=== PATIENT | female | born 1960 | race Caucasian/White ===

== ENCOUNTER 2018-12-08 08:17 | Emergency (ER) | payer SELFPAY ==
[2018-12-08 09:10] LABS: #Eosinphils 0.2 thou/uL (0.0-0.7); #Lymphocytes 2.5 thou/uL (1.20-3.40); #Monocytes 0.6 thou/uL (0.11-0.59); #Neutrophils 3.8 thou/uL (1.40-6.50); %Basophils 0.5 % (0.0-1.0); %Eosinophils 3.4 % (0.0-10.0); %Lymphocytes 34.4 % (21.0-51.0); %Monocytes 8.3 % (0.0-10.0); %Neutrophils 53.4 % (42.0-75.0); Hemoglobin 12.2 g/dL (12.0-16.0); Mean Corpuscular HGB CONC 33.5 g/dL (32.0-36.0); Mean Corpuscular Hemoglobin 28.9 pg (27.0-31.0); Mean Corpuscular Volume 86.2 fL (78.0-98.0); Mean Platelet Volume 8.1 fL (7.4-10.4); Platelet Count 273 thou/uL (130-400); RBC Distribution Width 13.8 % (11.5-14.5); Red Blood Cell (RBC) Count 4.21 mill/uL (4.20-5.40); White Blood Cell (WBC) Count 7.2 thou/uL (4.8-10.8)
[2018-12-08 09:56] LABS: ALT (SGPT) 15 U/L (8-55); AST (SGOT) 16 U/L (5-34); Alkaline Phosphatase 132 U/L (40-150); Anion Gap 17 mmol/L (10-20); BUN (Urea Nitrogen) 11 mg/dL (9.8-20.1); Bilirubin, Total 0.2 mg/dL (0.2-1.2); Calc. Creatinine Clearance 0 mL/min (70-130); Calcium 9.2 mg/dL (7.8-10.44); Carbon Dioxide 21 mmol/L (22-29); Chloride 107 mmol/L (98-107); Estimated GFR-MDRD 75; Globulin 2.4 g/dL (2.4-3.5); Glucose 99 mg/dL (70-105); Lipase 9 U/L (8-78); Protein, Total 6.4 g/dL (6.0-8.3); Sodium 141 mmol/L (136-145)
[2018-12-08] MEDS ORDERED: Ondansetron PF 4 MG/2 ML Vial ONE (10:06)
[2018-12-08 10:49] LABS: Bilirubin Negative (Negative); Blood, Urine Negative (Negative); Clarity Clear (Clear); Glucose, Urine (Dipstick) Normal (Negative); Leukocyte Negative Leu/uL (Negative); Nitrite Negative (Negative); Protein, Urine (Dipstick) Negative (Neg-Trace); Urobilinogen Normal mg/dL (Less than 2)
[2018-12-08] MEDS ORDERED: ISOVUE-370 76%-LOCM 1 ML ONE (11:10)
[2018-12-08] MEDS ORDERED: Iopamidol 370 76% 50 ML VIAL FS ONE (11:10)
--- NOTE | 2018-12-08 12:14 | CT ---
CT ABDOMEN AND PELVIS WITH IV CONTRAST: Oral contrast also administered. Multiplanar reconstruction. INDICATION: Abdominal pain. History of gastric bypass surgery. COMPARISON: No comparison. FINDINGS: The lung bases are clear. Liver, spleen, and pancreas are unremarkable. There is a small sliding diaphragmatic hernia. Change s of gastric bypass noted with a gastrojejunostomy. The visualized stomach and duodenum are unremark able. Jejunal loops show mild dilatation proximally. The more distal jejunal loops are normal caliber. Il eal loops unremarkable. Stool throughout the colon. Aorta normal caliber. No adenopathy, mass, or free fluid. Adrenal glands and kidneys unremarkable. Urinary bladder unremarkable. IMPRESSION: Postoperative changes and gastric bypass with a gastrojejunostomy. Nonspecific distention of proxima l jejunal loops. The mid and distal small bowel loops are unremarkable. No evidence of acute proces s. POS: OFF
== END 2018-12-08 12:15 | disposition home or self-care (01) ==
LOC: ERS 08:17
DX: R10.9 Unspecified abdominal pain (principal); I10 Essential (primary) hypertension; F41.9 Anxiety disorder, unspecified; Z79.899 Other long term (current) drug therapy
CPT/HCPCS: 36415; 74177; 80053; 81003; 83690; 85025; 96374; J2405; Q9966; Q9967

== ENCOUNTER 2019-11-01 10:28 | Emergency (ER) | payer MEDICARE, SELFPAY ==
--- NOTE | 2019-11-01 11:42 | CT ---
EXAM: CT pelvis without contrast HISTORY: Right hip pain after falling out of bed 2 days ago COMPARISON: None TECHNIQUE: Multiple contiguous axial images were obtained and a CT of the pelvis without contrast. Sa gittal and coronal reformats were performed. FINDINGS: No pelvic fractures are seen. No fracture of either proximal femur is seen. No significant degenerative changes are seen. There is a nonspecific sclerotic lesion in the right iliac bone. The visualized intrapelvic structures are unremarkable. The soft tissues surrounding the pelvis are u nremarkable. IMPRESSION: No evidence of hip or pelvic fracture.
== END 2019-11-01 11:55 | disposition home or self-care (01) ==
LOC: ERS 10:28
DX: S70.01XA Contusion of right hip, initial encounter (principal); I10 Essential (primary) hypertension; F41.9 Anxiety disorder, unspecified; F03.90 Unspecified dementia, unspecified severity, without behavioral disturbance, psychotic disturbance, mood disturbance, and anxiety; Z79.899 Other long term (current) drug therapy; W06.XXXA Fall from bed, initial encounter
CPT/HCPCS: 72192

== ENCOUNTER 2019-12-05 09:53 | Inpatient (IN) | payer MEDICARE, OTHER ==
--- NOTE | 2019-12-05 10:13 | CT ---
CT BRAIN WITHOUT CONTRAST: HISTORY: Level 2 stroke. Left-sided facial droop and right-sided weakness FINDINGS: No evidence of acute infarct, hemorrhage, midline shift or abnormal extra-axial fluid collections is seen. The ventricular size is appropriate and the basilar cisterns are patent. The bony calvarium is intact. The visualized paranasal sinuses and mastoid air cells are well aerated. IMPRESSION: No CT evidence of acute intracranial process. Discussed over the telephone with ER physician Dr. Lam Motta at 10:10 AM
[2019-12-05 10:14] LABS: #Basophils 0.1 thou/uL (0.0-0.2); #Eosinphils 0.2 thou/uL (0.0-0.7); #Monocytes 0.5 thou/uL (0.11-0.59); #Neutrophils 5.6 thou/uL (1.40-6.50); %Basophils 1.2 % (0.0-1.0); %Lymphocytes 32.2 % (21.0-51.0); %Monocytes 5.6 % (0.0-10.0); %Neutrophils 59.1 % (42.0-75.0); Hemoglobin 13.7 g/dL (12.0-16.0); Mean Corpuscular HGB CONC 32.7 g/dL (32.0-36.0); Mean Corpuscular Hemoglobin 29.1 pg (27.0-31.0); Mean Corpuscular Volume 89.2 fL (78.0-98.0); Mean Platelet Volume 8.4 fL (7.4-10.4); Platelet Count 381 thou/uL (130-400); RBC Distribution Width 14.9 % (11.5-14.5); Red Blood Cell (RBC) Count 4.71 mill/uL (4.20-5.40); White Blood Cell (WBC) Count 9.4 thou/uL (4.8-10.8)
[2019-12-05 10:18] LABS: INR-International Normal Ratio 0.9; PTT 32.6 sec (22.9-36.1); Prothrombin Time 12.3 sec (12.0-14.7)
[2019-12-05 10:31] LABS: ALT (SGPT) 12 U/L (8-55); AST (SGOT) 13 U/L (5-34); Albumin 4.4 g/dL (3.5-5.0); Alkaline Phosphatase 149 U/L (40-110); Anion Gap 16 mmol/L (10-20); BUN (Urea Nitrogen) 16 mg/dL (9.8-20.1); Bilirubin, Total 0.2 mg/dL (0.2-1.2); CK (CPK) 41 U/L (29-168); Calc. Creatinine Clearance 0 mL/min (70-130); Calcium 9.4 mg/dL (7.8-10.44); Carbon Dioxide 22 mmol/L (22-29); Chloride 103 mmol/L (98-107); Estimated GFR-MDRD 74; Globulin 2.8 g/dL (2.4-3.5); Glucose 197 mg/dL (70-105); Protein, Total 7.2 g/dL (6.0-8.3); Sodium 137 mmol/L (136-145)
[2019-12-05] MEDS ORDERED: Aspirin Chewable 81 MG TAB ONE (10:40)
[2019-12-05] MEDS ORDERED: Ondansetron ODT 4 MG TAB SL PRN (11:00)
[2019-12-05] MEDS ORDERED: Ondansetron PF 4 MG/2 ML Vial IVP PRN ×2 (11:00→13:46)
[2019-12-05] MEDS ORDERED: Acetaminophen 325 MG TAB PO PRN ×2 (11:00→13:46)
--- NOTE | 2019-12-05 13:16 | PDOC.FPRHP ---
- History of Present Illness Chief Complaint: right sided numbness History of Present Illness: Patient is a pleasant 59 year old female with PMH of early onset Alzheimer's dementia, T2DM, HTN, a right hip fracture presenting to the ED at [facility] complaining of right sided numbness. Patient states that yesterday afternoon around 4pm, she was watching TV when she experienced an "excruciating headache. " This has never happened before. Headache was located on the right pentecostalism area. Pain was described as "sharp and dull," rated as a 10/10 at its greatest with occasional radiation to the right occipital area. Patient states that she attempted to treat the headache with extra strength Tylenol which did not alleviate the pain. Patient also noticed that the right side of her face was "drooping" at the onset of the headache. She noticed that she was not able to drink out of a straw due to this drooping. Nothing made these symptoms better or worse. Patient attempted to sleep but was unable to get rest due to the unrelenting headache. Upon waking this morning, she noticed that her right upper and lower extremities were numb. Her headache was still present. Patient' s mother brought her to the hospital. Patient also admits to history of migraine and multiple concussions. Patient also states that she fell on her right hip 1-2 months ago. Hip was not operated on. Patient admits to nausea and numbness in her right upper and lower extremities but denies any fever, chills, dizziness, chest pain, shortness of breath, vomiting, abdominal pain, diarrhea, constipation, dysuria. ED Course: 81 mg aspirin; CT head - Allergies/Adverse Reactions Allergies Allergy/AdvReac Type Severity Reaction Status Date / Time No Known Allergies Allergy Unverified 12/05/19 14:09 - Home Medications Medication Instructions Recorded Confirmed Type Acetaminophen [Tylenol Extra 1,000 mg PO Q4HR PRN 12/05/19 12/05/19 History Strength] Aripiprazole [Abilify] 10 mg PO DAILY 12/05/19 12/05/19 History Cyclobenzaprine [Flexeril] 10 mg PO TID PRN 12/05/19 12/05/19 History Doxepin HCl 25 mg PO DAILY 12/05/19 12/05/19 History Ibuprofen [Motrin] 800 mg PO TID PRN 12/05/19 12/05/19 History Omeprazole 20 mg BID 12/05/19 12/05/19 History Sertraline HCl [Zoloft] 150 mg PO DAILY 12/05/19 12/05/19 History Topiramate 25 mg BID 12/05/19 12/05/19 History clonazePAM [Klonopin] 1 mg PO TID 12/05/19 12/05/19 History lamoTRIgine [LaMICtal XR] 50 mg PO DAILY 12/05/19 12/05/19 History metFORMIN [Glucophage] 500 mg PO BID-WM 12/05/19 12/05/19 History - History PMHx: hypertension, DMII, Depression, Early onset alzheimers PSHx: exploratory laparotomy in May 2019 in [place], hysterectomy, cholecystectomy, tummy tuck, breast lift, appendectomy FHx: sister - multiple TIAs; father - [place]; maternal grandfather - TIAs and stroke Social: denies any EtOH, tobacco, illicit drug use or recent travel; currently on disability due to early onset Alzheimer's dementia - Review of Systems General: denies: fever/chills Eyes: denies: eye pain, vision changes ENT: denies: nasal congestion Respiratory: denies: cough, congestion, shortness of breath Cardiovascular: reports: edema. denies: chest pain Gastrointestinal: reports: nausea. denies: vomiting, diarrhea, constipation Genitourinary: denies: dysuria, polyuria Skin: denies: rashes, lesions Musculoskeletal: reports: swelling Neurological: reports: numbness (right sideded), weakness (right sided) Psychological: reports: anxiety, depression - Vital signs BP: 119/78 HR: 66 RR: 16 Tmax: 98.0 Pox: 96% on RA Wt: 106 kg - Physical Exam Constitutional: NAD, awake, alert and oriented HEENT: normocephalic and atraumatic, PERRLA, EOMI, conjunctiva clear, no scleral icterus, grossly normal vision, grossly normal hearing, normal nasal mucosa, oropharynx clear Neck: supple, FROM Chest: no-tender to palpation Heart: RRR, normal S1/S2, pulses present, no edema Lungs: CTAB, no respiratory distress, good air movement, no rales/rhonchi, no wheezing Abdomen: bowel sounds present, no masses/distention Musculoskeletal: normal structure -Musculoskeletal: ROM decreased in right lower extremity -Neurological: decreased hearing on right ear; decreased sensation in all areas of CN V on the right side; decreased sensation in all dermatomes in upper and lower right extremities; strength testing 4/5 on the right upper and lower extremities but 5 /5 on left upper low extremities; positive pronator drift; right sided facial droop Skin: no rash/lesions, no jaundice Heme/Lymphatic: no unusual bruising or bleeding, no purpura, no petechia Psychiatric: normal mood and affect, good judgment and insight, intact recent and remote memory FMR H&P: Results - Labs Result Diagrams: 12/05/19 09:59 12/05/19 09:59 Lab results: WBC 9.4 thou/uL (4.8-10.8) 12/05/19 09:59 Hgb 13.7 g/dL (12.0-16.0) 12/05/19 09:59 Hct 42.0 % (36.0-47.0) 12/05/19 09:59 MCV 89.2 fL (78.0-98.0) 12/05/19 09:59 Plt Count 381 thou/uL (130-400) 12/05/19 09:59 Neutrophils % 59.1 % (42.0-75.0) 12/05/19 09:59 Sodium 137 mmol/L (136-145) 12/05/19 09:59 Potassium 4.0 mmol/L (3.5-5.1) 12/05/19 09:59 Chloride 103 mmol/L (98-107) 12/05/19 09:59 Carbon Dioxide 22 mmol/L (22-29) 12/05/19 09:59 BUN 16 mg/dL (9.8-20.1) 12/05/19 09:59 Creatinine 0.80 mg/dL (0.6-1.1) 12/05/19 09:59 Glucose 197 mg/dL (70-105) H 12/05/19 09:59 Calcium 9.4 mg/dL (7.8-10.44) 12/05/19 09:59 Total Bilirubin 0.2 mg/dL (0.2-1.2) 12/05/19 09:59 AST 13 U/L (5-34) 12/05/19 09:59 ALT 12 U/L (8-55) 12/05/19 09:59 Alkaline Phosphatase 149 U/L (40-110) H 12/05/19 09:59 Creatine Kinase 41 U/L (29-168) 12/05/19 09:59 Serum Total Protein 7.2 g/dL (6.0-8.3) 12/05/19 09:59 Albumin 4.4 g/dL (3.5-5.0) 12/05/19 09:59 - EKG Interpretation EKG: NSR 95 bmp - Radiology Interpretation CT scan - head Status: image reviewed by me, report reviewed by me Additional comment: No acute intracranial process FMR H&P: A/P - Plan Right sided hemiparesis like 2/2 to ischemic stroke vs. migraine - NIH 6, s/p ASA 324 mg - symptoms began at 1600 yesterday, outside of the window for TPA - CT showed no intracranial process, CTA neck negative - MRI ordered - TSH, mag, phos, and lipid panel ordered - cleared by E[employer] MOLD [employer]ORATORY TECHNICIAN - pt has history of migraines on multiple migraine medications (starting home topamax) - s/p tylenol and toradol for pain DMII - start home metformin Depression/Anxiety - will start home clonazepam, doxepin, aripiprazole, lamotragine Early Onset Alzheimers - will monitor, does not appear that she is on any home medication Peptic Ulcer Disease - will start home omeprazole PCP: Dr. Carney Diet: CC IVF: SL CODE: Full Dispo: discharge pending further medical workup. Will admit to stroke unit. Length of stay >48 hrs FMR H&P: Upper Level - Pertinent history I, Linda Beckham MD PGY3, have evaluated this patient and agree with findings/plan as outlined by data analysis intern resident. Pertinent changes/additions are listed here. 59 yo F with hx of early onset Alzheimers dementa, DM2 on metformin, hx of migraines, significant psych history, and hx of gastric bypass presents for acute onset of right facial paralysis and weakness of RUE and RLE associated with headache. Patient reports she noticed she was having difficulty drinking through a straw and swallowing. She reports associated ipsilateral numbness right face, RUE and RLE. She reports associated right temporal headache that is throbbing, radiating to the back of the head. Denies associated vision changes, light or sound sensitivity. Reports decreased hearing R ear. On exam, NIHSS of 6 with Rt facial paralysis including forehead, decreased hearing right ear, numbness Rt face, RUE and RLE, and strength 4/5 in RUE and RLE. In ED, CT head and CTA head/neck were negative. Vitals signs were stable. CBC/ CMP were unremarkable except for mildly elevated alk phos. TSH, mag and phos unremarkable. CVA vs Complex Migraine vs [place] Palsy -NIH 6, s/p ASA 324 mg -CT head and CTA head/neck neg -MRI pending -FLP pending, continue home statin -continue home ASA 81 mg qd -Speech eval completed, start HH and CC diet -Toradol and tylenol for headache, resume home medications for migraine Agree with data analysis intern note for management of other chronic problems. - Plan Date/Time: 12/05/19 1303 Addendum - Attending - Attending Attestation Date/Time: 12/05/19 1701 I personally evaluated the patient and discussed the management with the team. I agree with the History, Examination, Assessment and Plan documented above with any addition or exceptions noted below. Patient with headache starting after the symptom onset yesterday. She denies a history of recent headache but seems to have a home med list c/w a h/o headaches. Will go ahead and talk with neuro concerning SAH or any additional workup.
[2019-12-05] MEDS ORDERED: Ondansetron ODT 4 MG TAB PO PRN (13:46)
[2019-12-05 14:02] VITALS: BMI 36.5
[2019-12-05] MEDS ORDERED: Acetaminophen 500 MG TAB PO SCH (14:15)
[2019-12-05] MEDS ORDERED: Ketorolac Tromethamine 30 MG/ML VIAL IVP SCH (14:15)
[2019-12-05] MEDS ORDERED: Iopamidol 370 76% 100 ML VIAL ONE (14:30)
[2019-12-05] MEDS ORDERED: Aspirin 81 mg Enteric Coated Tablet PO SCH (14:45)
[2019-12-05] MEDS ORDERED: Lorazepam 0.5 MG TAB PO SCH ×2 (14:45)
[2019-12-05 15:10] LABS: Hemoglobin A1c 5.7 % (4.0-6.0)
[2019-12-05 15:13] LABS: Magnesium 1.9 mg/dL (1.6-2.6); Phosphorus 3.8 mg/dL (2.3-4.7)
[2019-12-05] MEDS ORDERED: Dextrose 5% in Water 1,000 ML IV PRN (15:45)
[2019-12-05] MEDS ORDERED: Dextrose 50% Abboject 50 ML SYRINGE SLOW IVP PRN (15:45)
[2019-12-05] MEDS: metFORMIN 500 MG TAB PO SCH (16:51)
[2019-12-05] MEDS ORDERED: Artificial Tear Sol 15 ML BOT EA EYE PRN (20:44)
[2019-12-05] MEDS ORDERED: Polyvinyl Alcohol 1.4%/Povidone 0.6% Opth Drops EA EYE SCH (20:45)
[2019-12-05] MEDS ORDERED: clonazePAM 1 MG TAB PO SCH (21:00)
[2019-12-05] MEDS: Topiramate 25 MG TAB PO SCH (21:11)
[2019-12-05] MEDS: Ibuprofen 800 MG TAB PO PRN (21:11)
[2019-12-05] MEDS: clonazePAM 1 MG TAB PO SCH (21:11)
[2019-12-06 05:32] LABS: #Basophils 0.1 thou/uL (0.0-0.2); #Eosinphils 0.3 thou/uL (0.0-0.7); #Monocytes 0.6 thou/uL (0.11-0.59); #Neutrophils 3.4 thou/uL (1.40-6.50); %Basophils 0.8 % (0.0-1.0); %Eosinophils 3.9 % (0.0-10.0); %Lymphocytes 41.4 % (21.0-51.0); %Monocytes 8.2 % (0.0-10.0); %Neutrophils 45.7 % (42.0-75.0); Hemoglobin 12.8 g/dL (12.0-16.0); Mean Corpuscular HGB CONC 31.6 g/dL (32.0-36.0); Mean Corpuscular Hemoglobin 28.3 pg (27.0-31.0); Mean Corpuscular Volume 89.4 fL (78.0-98.0); Mean Platelet Volume 8.3 fL (7.4-10.4); Platelet Count 352 thou/uL (130-400); RBC Distribution Width 15.1 % (11.5-14.5); Red Blood Cell (RBC) Count 4.54 mill/uL (4.20-5.40); White Blood Cell (WBC) Count 7.3 thou/uL (4.8-10.8)
[2019-12-06] MEDS: Ibuprofen 800 MG TAB PO PRN (05:48)
--- NOTE | 2019-12-06 06:13 | PDOC.FM ---
- Subjective Subjective: Reports continuous headache with no relief from ibuprofen or tylenol. Reports improvement in sensation and strength. Says that although she still cannot close her right eye completely, she feels that it has improved. Pt is also asking if she will be able to go home today after her MRI. - Objective MAR Reviewed: Yes Vital Signs & Weight: Vital Signs (12 hours) Temp Pulse Pulse Pulse Resp BP BP 12/06/19 03:45 97.5 F L 82 18 12/05/19 23:58 97.6 F 86 18 12/05/19 21:10 12/05/19 20:05 98.0 F 90 18 12/05/19 18:55 95 95 106/63 124/72 BP BP BP Pulse Ox 12/06/19 03:45 110/68 97 12/05/19 23:58 97/58 L 93 L 12/05/19 21:10 96 12/05/19 20:05 128/88 96 12/05/19 18:55 Weight Weight 105.744 kg I&O: 12/04/19 12/05/19 12/06/19 06:59 06:59 06:59 Intake Total 900 Balance 900 Result Diagrams: 12/06/19 04:33 12/06/19 04:33 EKG Reviewed by me: Yes (SR 70-100s) Phys Exam - Physical Examination Constitutional: NAD HEENT: PERRLA, moist MMs Neck: supple, full ROM Respiratory: clear to auscultation bilateral Cardiovascular: RRR Musculoskeletal: no edema Improved strength throughout, improved sensation, decreased pin prick sens. Psychiatric: normal affect, A&O x 3 Skin: no rash Dx/Plan - Plan Plan: Right sided hemiparesis like 2/2 to ischemic stroke vs. migraine - NIH 6, s/p ASA 324 mg - symptoms began at 1600 yesterday, outside of the window for TPA - CT showed no intracranial process, CTA neck negative - MRI ordered yesterday, but not done - neurology consulted; appreciate recs - TSH, mag, phos within normal limits - lipid panel showed elevated triglycerides; ASCVD risk of 4.1%; due to known diabetes, will start moderate intensity statin - cleared by SUPERVISOR PROCESS TESTING - pt has history of migraines on multiple migraine medications (starting home topamax); continues to have a headache; will give reglan and benadryl - s/p tylenol and toradol for pain DMII - start home metformin Depression/Anxiety - will start home clonazepam, doxepin, aripiprazole, lamotragine Early Onset Alzheimers - will monitor, does not appear that she is on any home medication Peptic Ulcer Disease - will start home omeprazole PCP: Dr. Carney Diet: CC IVF: SL CODE: Full Dispo: consider dc home today pending MRI and neuro recs Addendum - Attending - Attending Attestation Date/Time: 12/06/19 9455 I personally evaluated the patient and discussed the management with the team. I agree with the History, Examination, Assessment and Plan documented above with any addition or exceptions noted below. Improved symptoms but still present. Headache improved. MRI normal. Plan dc with outpt f/u.
[2019-12-06 06:18] LABS: ALT (SGPT) 11 U/L (8-55); AST (SGOT) 14 U/L (5-34); Albumin 3.9 g/dL (3.5-5.0); Alkaline Phosphatase 132 U/L (40-110); Anion Gap 18 mmol/L (10-20); BUN (Urea Nitrogen) 15 mg/dL (9.8-20.1); Bilirubin, Total 0.2 mg/dL (0.2-1.2); Calc. Creatinine Clearance 138 mL/min (70-130); Calcium 8.8 mg/dL (7.8-10.44); Carbon Dioxide 20 mmol/L (22-29); Cardiac Risk 4.7 (Less than 4.5); Chloride 105 mmol/L (98-107); Cholesterol 189 mg/dl (< 200 Desired); Estimated GFR-MDRD 80; Globulin 2.5 g/dL (2.4-3.5); Glucose 102 mg/dL (70-105); HDL Cholesterol 40 mg/dL (>60 Neg Risk); LDL Cholesterol, Calculated 102 mg/dL; Potassium 4.3 mmol/L (3.5-5.1); Protein, Total 6.4 g/dL (6.0-8.3); Sodium 139 mmol/L (136-145); Triglycerides 236 mg/dL (Less than 150)
--- NOTE | 2019-12-06 07:11 | CT ---
CT HEAD WITH IV CONTRAST AND 3D POSTPROCESSING CTA HEAD WITH IV CONTRAST AND 3D POSTPROCESSING CTA NECK WITH IV CONTRAST AND 3D POSTPROCESSING: HISTORY: Level II stroke. Left-sided facial droop and right-sided weakness. FINDINGS: There is good flow in the vertebrobasilar and carotid artery systems in the neck and head. Normal ca liber is seen without evidence without high-grade stenosis, main branch occlusion, or aneurysm format ion. Discussed over the telephone with ER physician, Dr. Lam Motta, at 10:24 a.m. CODE CR POS: OFF
[2019-12-06] MEDS ORDERED: diphenhydrAMINE 25 MG CAP PO SCH (08:15)
[2019-12-06] MEDS ORDERED: Acetaminophen 500 MG TAB PO SCH (08:15)
[2019-12-06] MEDS ORDERED: Lorazepam 2 MG/ML VIAL SLOW IVP SCH (08:15)
[2019-12-06] MEDS: Topiramate 25 MG TAB PO SCH (08:37)
[2019-12-06] MEDS: clonazePAM 1 MG TAB PO SCH (08:37)
[2019-12-06] MEDS: metFORMIN 500 MG TAB PO SCH (08:38)
[2019-12-06] MEDS ORDERED: Enoxaparin Sodium 40 MG/0.4 ML SYRINGE SC SCH (09:00)
[2019-12-06] MEDS ORDERED: clonazePAM 1 MG TAB PO SCH (09:00)
[2019-12-06] MEDS ORDERED: LAMOTRIGINE 50 MG PO SCH (09:00)
[2019-12-06] MEDS ORDERED: Aripiprazole 10 MG TAB PO SCH (09:00)
[2019-12-06] MEDS ORDERED: Doxepin HCl 25 MG CAP PO SCH (09:00)
--- NOTE | 2019-12-06 09:31 | MRI ---
MRI BRAIN WITHOUT CONTRAST: HISTORY: Left-sided facial droop and right-sided weakness CORRELATION: CT scan from 12/05/2019. FINDINGS: No restricted diffusion is seen. The ventricular size is appropriate and the basilar cisterns are pat ent. No evidence of acute infarct, hemorrhage, midline shift or abnormal extra-axial fluid collections is seen. The visualized paranasal sinuses and mastoid air cells are well-aerated. IMPRESSION: No evidence of acute intracranial process.
[2019-12-06] MEDS ORDERED: Metoclopramide 10 MG/10 ML UDCUP PO SCH ×3 (09:45→11:30)
[2019-12-06 11:07] VITALS: TEMP 97.9
[2019-12-06 11:45] LABS: SARS-CoV-2 MS2 Positive; SARS-CoV-2 N Gene Negative; SARS-CoV-2 S Gene Negative; SARS-CoV-2 by NAA Not Detected (NotDetected); SARS-CoV-2 orf1ab Negative
--- NOTE | 2019-12-06 12:42 | CON ---
NEUROLOGY CONSULTATION DATE OF CONSULTATION: 12/06/2019 REASON FOR CONSULTATION: Right-sided numbness. HISTORY OF PRESENT ILLNESS: Ms. Abena English is a 59-year-old female with medical history of early-onset Alzheimer dementia, diabetes mellitus, hypertension, and recent right hip fracture, presented to the emergency room with right-sided focal paresthesias. Per patient, she was fine until 12/04/2019 around 4 p.m. when she was watching TV and experienced excruciating headache, which has never happened before in her life. The headache started in the right confucianist area and then radiated to the right occipital area. She describes the pain as sharp, dull and was 10/10. She decided to treat the pain with Extra Strength Tylenol, which did not help with the headache, and she also noticed she has right facial drooping and unable to close her right eye. She was unable to drink from a straw and noticed drooling. Per the patient, the headache continued and she felt numbness of the right upper and lower extremities. She does have history of headaches, but this headache was extremely excruciating and associated with paresthesias. The patient denies nausea, vomiting, chest pain, abdominal pain, problems with breathing, recent sick contacts, recent exposure to COVID, loss of vision or loss of consciousness associated with the episode. In the emergency room, she was given 81 mg of aspirin and head CT was done, which was negative for acute intracranial pathology. REVIEW OF SYSTEMS: All 14 systems were reviewed and were negative except the pertinent positive and negative mentioned in the HPI. PAST MEDICAL HISTORY: Hypertension, depression, early-onset Alzheimer's, diabetes mellitus type 2. PAST SURGICAL HISTORY: Exploratory laparotomy in May 2019, hysterectomy, cholecystectomy, appendectomy, breast lift, and tummy tuck. FAMILY HISTORY: Sister has multiple TIAs, mother had DC, and maternal grandfather had TIAs and stroke. SOCIAL HISTORY: The patient denies alcohol, illegal drug use, or tobacco abuse. She is currently on disability due to early-onset Alzheimer's. Allergies/Adverse Reactions Allergies Allergy/AdvReac Type Severity Reaction Status Date / Time No Known Allergies Allergy Unverified 12/05/19 14:09 - Home Medications Medication Instructions Recorded Confirmed Type Acetaminophen [Tylenol Extra 1,000 mg PO Q4HR PRN 12/05/19 12/05/19 History Strength] Aripiprazole [Abilify] 10 mg PO DAILY 12/05/19 12/05/19 History Cyclobenzaprine [Flexeril] 10 mg PO TID PRN 12/05/19 12/05/19 History Doxepin HCl 25 mg PO DAILY 12/05/19 12/05/19 History Ibuprofen [Motrin] 800 mg PO TID PRN 12/05/19 12/05/19 History Omeprazole 20 mg BID 12/05/19 12/05/19 History Sertraline HCl [Zoloft] 150 mg PO DAILY 12/05/19 12/05/19 History Topiramate 25 mg BID 12/05/19 12/05/19 History clonazePAM [Klonopin] 1 mg PO TID 12/05/19 12/05/19 History lamoTRIgine [LaMICtal XR] 50 mg PO DAILY 12/05/19 12/05/19 History metFORMIN [Glucophage] 500 mg PO BID-WM 12/05/19 12/05/19 History Vital Signs & Weight: Vital Signs (12 hours) Temp Pulse Pulse Pulse Resp BP BP 12/06/19 03:45 97.5 F L 82 18 12/05/19 23:58 97.6 F 86 18 12/05/19 21:10 12/05/19 20:05 98.0 F 90 18 12/05/19 18:55 95 95 106/63 124/72 BP BP BP Pulse Ox 12/06/19 03:45 110/68 97 12/05/19 23:58 97/58 L 93 L 12/05/19 21:10 96 12/05/19 20:05 128/88 96 12/05/19 18:55 Weight Weight 105.744 kg I&O: 12/04/19 12/05/19 12/06/19 06:59 06:59 06:59 Intake Total 900 Balance 900 - Physical Exam Constitutional: NAD, awake, alert and oriented HEENT: normocephalic and atraumatic, PERRLA, EOMI Neck: supple, FROM Chest: no-tender to palpation Heart: RRR, normal S1/S2, pulses present, no edema Lungs: CTAB, no respiratory distress, good air movement, no rales/rhonchi, no wheezing Abdomen: bowel sounds present, no masses/distention -Neurological: Mental status: The patient is alert and oriented to person, place, and time. Speech is clear. Cranial nerves 2 through 12 intact except 5, decreased sensation in V1, V2, and V3 distribution to light touch; V11, right facial droop and right orbicularis oculi weakness, unable to raise eyebrows on the right, upper motor neuron type facial palsy; 8, decreased hearing on the right. Motor: Muscle tone and bulk are normal. Strength is 5/5 in the upper and lower extremities, 4+/5 in the right upper and lower extremities, decreased sensation to light touch in the right upper and lower extremities. Positive right pronator drift. Cerebellar: Finger-nose testing intact. Gait: Deferred due to the patient's safety reasons. DATA REVIEWED: I reviewed the labs, which were essentially unremarkable except glucose 197. EKG showed sinus tachycardia and CT scan was reviewed, which was negative for acute intracranial pathology. 12/05/19 09:59 Lab results: WBC 9.4 thou/uL (4.8-10.8) 12/05/19 09:59 Hgb 13.7 g/dL (12.0-16.0) 12/05/19 09:59 Hct 42.0 % (36.0-47.0) 12/05/19 09:59 MCV 89.2 fL (78.0-98.0) 12/05/19 09:59 Plt Count 381 thou/uL (130-400) 12/05/19 09:59 Neutrophils % 59.1 % (42.0-75.0) 12/05/19 09:59 Sodium 137 mmol/L (136-145) 12/05/19 09:59 Potassium 4.0 mmol/L (3.5-5.1) 12/05/19 09:59 Chloride 103 mmol/L (98-107) 12/05/19 09:59 Carbon Dioxide 22 mmol/L (22-29) 12/05/19 09:59 BUN 16 mg/dL (9.8-20.1) 12/05/19 09:59 Creatinine 0.80 mg/dL (0.6-1.1) 12/05/19 09:59 Glucose 197 mg/dL (70-105) H 12/05/19 09:59 Calcium 9.4 mg/dL (7.8-10.44) 12/05/19 09:59 Total Bilirubin 0.2 mg/dL (0.2-1.2) 12/05/19 09:59 AST 13 U/L (5-34) 12/05/19 09:59 ALT 12 U/L (8-55) 12/05/19 09:59 Alkaline Phosphatase 149 U/L (40-110) H 12/05/19 09:59 Creatine Kinase 41 U/L (29-168) 12/05/19 09:59 Serum Total Protein 7.2 g/dL (6.0-8.3) 12/05/19 09:59 Albumin 4.4 g/dL (3.5-5.0) 12/05/19 09:59 - EKG Interpretation EKG: NSR 95 bmp - Radiology Interpretation CT scan - head Status: image reviewed by me, report reviewed by me Additional comment: No acute intracranial process ASSESSMENT AND PLAN: Ms. Abena English is a 59-year-old female who has been admitted for right hemiparesis with right focal paresthesias, which has improved since admission in the setting of debilitating migraine MRI of the brain reviewed, which was negative for acute intracranial pathology. Most likely, complicated migraine with associated neurological features. Headache improved. Continue pain control. Physical Therapy/Occupational Therapy/Speech. Continue Topamax for headache prophylaxis. Continue home medications. Continue medical management per primary team. The patient should follow up with Neurology as outpatient for management of complicated migraine. 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 The patient wants to be discharged today if stable for discharge and if cleared by Physical Therapy and Occupational Therapy. TIA could not be ruled out so continue aspirin and statin as outpatient. Plan was discussed in detail with the patient and the nursing staff.. Thank you for the consult. Job ID: [id number] MTDD
[2019-12-06 13:19] VITALS: BP 117/75
[2019-12-06] MEDS ORDERED: Aspirin Chewable 81 MG TAB PO SCH (13:45)
--- NOTE | 2019-12-06 16:15 | EKG ---
Test Reason : Blood Pressure : / mmHG Vent. Rate : 095 BPM Atrial Rate : 095 BPM P-R Int : 132 ms QRS Dur : 076 ms QT Int : 372 ms P-R-T Axes : 011 030 033 degrees QTc Int : 467 ms Normal sinus rhythm Nonspecific ST abnormality Abnormal ECG Confirmed by VALENTE BARNES ([id number]), editor city JOS SANTOS ([id number]) on 12/06/2019 4:14:36 PM Referred By: Confirmed By:VALENTE BARENS
[2019-12-06] MEDS ORDERED: Atorvastatin Calcium 20 MG TAB PO SCH (21:00)
--- NOTE | 2019-12-07 01:57 | DIS ---
DATE OF ADMISSION: 12/05/2019 DATE OF DISCHARGE: 12/06/2019 RESIDENT: Amy Howard MD ADMITTING ATTENDING: Warner Hess MD DISCHARGE ATTENDING: Warner Hess MD CONSULTS: Neurology. PROCEDURES/IMAGES: 1. Brain CT, no CT evidence of acute intracranial process. 2. CT angiography, good flow in the vertebrobasilar and carotid artery systems in the neck and head. Normal caliber is seen without evidence of high-grade stenosis, main branch occlusion, or aneurysm formation. 3. [place] angio with contrast, see above. 4. Brain MRI, no evidence of acute intracranial process. PRIMARY DIAGNOSIS: Complicated migraine. SECONDARY DIAGNOSES: 1. Type 2 diabetes. 2. Depression and anxiety. 3. Early-onset Alzheimer's. DISCHARGE MEDICATIONS: 1. Ibuprofen 800 mg p.o. t.i.d. p.r.n. 2. Cyclobenzaprine 10 mg p.o. t.i.d. p.r.n. 3. Lamotrigine 50 mg p.o. daily. 4. Sertraline 150 mg p.o. daily. 5. Clonazepam 1 mg p.o. 3 times a day. 6. Doxepin 25 mg p.o. daily. 7. Aripiprazole 10 mg p.o. daily. 8. Acetaminophen 1000 mg p.o. q.4 hours p.r.n. 9. Metformin 500 mg p.o. b.i.d. with meals. 10. Topiramate 25 mg b.i.d. 11. Omeprazole 20 mg b.i.d. 12. Aspirin 81 mg p.o. daily. 13. Atorvastatin 20 mg p.o. at bedtime. DISCONTINUED MEDICATIONS: None. HISTORY OF PRESENT ILLNESS AND HOSPITAL COURSE: Patient is a 59-year-old female with past medical history of early-onset Alzheimer's, dementia, type 2 diabetes, recent right hip fracture, who presented to the ED with complaints of right- sided weakness and numbness. She reported that the symptoms began at 4 p.m. the previous day. At the onset of symptoms, she also had an excruciating headache that was not relieved with Tylenol. She noticed that the side of her face is drooping and was having difficulty drinking through a straw. She attempted to sleep, but was unable to rest due to the headache and inability to close her right eye. When she awoke in the morning, her symptoms were still there, so she decided to come to the ED. In the ED, she received CT of the head which was normal. tPA was not given as patient was out of time frame. She received Tylenol and Toradol for pain and an MRI was ordered. The MRI was done the next day and appeared to be normal. Neurology was consulted and agreed that this could be a complex migraine. Neurology recommended that the patient followup as outpatient, continue home migraine prophylaxis/abortive medication, and start taking aspirin and a statin daily as a TIA could not be ruled out. DISPOSITION: Stable. DISCHARGE INSTRUCTIONS: Location: Home. Diet: Diabetic, heart healthy. Activity: As tolerated. Followup: Follow up with Dr. Carney in [address] Rowland with Neurology in 3 to 4 weeks. Job ID: [id number] MTDD
== END 2019-12-06 13:59 | disposition home or self-care (01) | DRG 103 ==
LOC: ERS 09:53 → 2SE 11:29
PROVIDERS: ADMIT Emergency Medicine; ATTEND Emergency Medicine
DX: G43.909 Migraine, unspecified, not intractable, without status migrainosus (principal); G81.91 Hemiplegia, unspecified affecting right dominant side; G45.9 Transient cerebral ischemic attack, unspecified; Z20.828 Contact with and (suspected) exposure to other viral communicable diseases; E11.9 Type 2 diabetes mellitus without complications; F41.9 Anxiety disorder, unspecified; F32.9 Major depressive disorder, single episode, unspecified; G30.9 Alzheimer's disease, unspecified; K27.9 Peptic ulcer, site unspecified, unspecified as acute or chronic, without hemorrhage or perforation; F02.80 Dementia in other diseases classified elsewhere, unspecified severity, without behavioral disturbance, psychotic disturbance, mood disturbance, and anxiety; Z90.710 Acquired absence of both cervix and uterus; Z79.899 Other long term (current) drug therapy; Z79.84 Long term (current) use of oral hypoglycemic drugs; Z90.49 Acquired absence of other specified parts of digestive tract
CPT/HCPCS: 36415; 36416; 70450; 70496; 70498; 70551; 80053; 80061; 82550; 83036; 83735; 84100; 84443; 84484; 85025; 85610; 85730; 87635; 93005; 99406; J1650; J1885; J2060; J2405; Q0163; Q9967; U0003

== ENCOUNTER 2019-12-11 11:27 | Observation (INO) | payer MEDICARE ==
[2019-12-11 11:53] LABS: #Basophils 0.1 thou/uL (0.0-0.2); #Eosinphils 0.3 thou/uL (0.0-0.7); #Lymphocytes 3.4 thou/uL (1.20-3.40); #Monocytes 0.7 thou/uL (0.11-0.59); #Neutrophils 3.6 thou/uL (1.40-6.50); %Eosinophils 3.4 % (0.0-10.0); %Lymphocytes 41.6 % (21.0-51.0); %Monocytes 9.2 % (0.0-10.0); %Neutrophils 44.8 % (42.0-75.0); Hemoglobin 13.2 g/dL (12.0-16.0); Mean Corpuscular Hemoglobin 28.9 pg (27.0-31.0); Mean Corpuscular Volume 87.6 fL (78.0-98.0); Mean Platelet Volume 8.2 fL (7.4-10.4); Platelet Count 345 thou/uL (130-400); RBC Distribution Width 14.7 % (11.5-14.5); Red Blood Cell (RBC) Count 4.55 mill/uL (4.20-5.40); White Blood Cell (WBC) Count 8.1 thou/uL (4.8-10.8)
--- NOTE | 2019-12-11 12:12 | CT ---
CT arteriogram neck with IV contrast and 3-D imaging CT arteriogram head with IV contrast and 3-D imaging HISTORY: Right-sided weakness. COMPARISON: 12/05/2019. FINDINGS: There is good contrast flow at the aortic arch and into each carotid and vertebral system w ith normal branching of the great vessels. No significant plaque evident. Each carotid bifurcation is widely patent. [place] is intact with persistent origin of the right posterior cerebral artery. Good flow into each cerebral and cerebellar system. No enhancing brain lesions evident. IMPRESSION : No acute vascular abnormalities or other significant abnormalities are demonstrated. Findings were called to Dr. Luther in the emergency department 1201 hours Code CR.
[2019-12-11 12:22] LABS: ALT (SGPT) 23 U/L (8-55); AST (SGOT) 22 U/L (5-34); Albumin 4.2 g/dL (3.5-5.0); Alkaline Phosphatase 145 U/L (40-110); Anion Gap 15 mmol/L (10-20); BUN (Urea Nitrogen) 13 mg/dL (9.8-20.1); Bilirubin, Total 0.2 mg/dL (0.2-1.2); Calc. Creatinine Clearance 0 mL/min (70-130); Calcium 9.3 mg/dL (7.8-10.44); Carbon Dioxide 22 mmol/L (22-29); Chloride 106 mmol/L (98-107); Estimated GFR-MDRD 83; Globulin 2.8 g/dL (2.4-3.5); Glucose 75 mg/dL (70-105); Potassium 3.6 mmol/L (3.5-5.1); Sodium 139 mmol/L (136-145)
--- NOTE | 2019-12-11 12:22 | CT ---
CT HEAD WITHOUT CONTRAST: INDICATIONS: Right-sided weakness. CORRELATION: MRI brain from 12/06/19. CT head from 12/05/19. FINDINGS: The ventricles remain normal in size and position. There is no evidence of intracranial mass, hemorrh age or infarct. No interval change. IMPRESSION: 1. No acute finding. 2. No interval change from recent study. POS: SANAZ
[2019-12-11] MEDS ORDERED: Ondansetron PF 4 MG/2 ML Vial ONE (12:31)
[2019-12-11] MEDS ORDERED: Aspirin Chewable 81 MG TAB ONE (13:13)
[2019-12-11] MEDS ORDERED: Ondansetron ODT 4 MG TAB PO PRN (14:15)
[2019-12-11] MEDS ORDERED: Dextrose 5% in Water 1,000 ML IV PRN (14:15)
[2019-12-11] MEDS ORDERED: Acetaminophen 325 MG TAB PO PRN (14:15)
[2019-12-11] MEDS ORDERED: Dextrose 50% Abboject 50 ML SYRINGE SLOW IVP PRN (14:15)
[2019-12-11] MEDS ORDERED: Ondansetron PF 4 MG/2 ML Vial IVP PRN (14:15)
[2019-12-11] MEDS ORDERED: Iopamidol-370 76% 500 ML 1 ML ONE (14:53)
[2019-12-11 15:37] VITALS: BMI 37.2
--- NOTE | 2019-12-11 16:09 | PDOC.FPRHP ---
- History of Present Illness Chief Complaint: Right sided weakness History of Present Illness: Patient is a 59 year old female with a history of DM2, MDD, migraines, and early onset Alzheimer's disease who presents with her mother with complains of left facial droop, right eye droop, decreased facial sensation sparing L forehead, right sided weakness and right sided numbness/tingling for the past 1 week that acutely worsened 2 hours prior to ED arrival. The patient was admitted from 12/04-12/05 with similar symptoms along with headache. Workup including CT Brain, CTA and MRI were all negative. Patient diagnosed with complex migraine. TIA could not be ruled out. Patient says her symptoms never resolved after discharge. She notes right sided neck pain for the past 1 day but denies headache. She reports right leg pain but relates it to recent R hip fracture. She notes nausea but denies vision changes, chest pain, SOB, vomiting , abdominal pain and edema. ED Course: In the ED, patient received ASA 324 and zofran 4mg. - Allergies/Adverse Reactions Allergies Allergy/AdvReac Type Severity Reaction Status Date / Time No Known Allergies Allergy Verified 12/11/19 15:50 - Home Medications Medication Instructions Recorded Confirmed Type Acetaminophen [Tylenol Extra 1,000 mg PO Q4HR PRN 12/05/19 12/11/19 History Strength] Aripiprazole [Abilify] 10 mg PO DAILY 12/05/19 12/11/19 History Doxepin HCl 25 mg PO DAILY 12/05/19 12/11/19 History Ibuprofen [Motrin] 800 mg PO TID PRN 12/05/19 12/11/19 History Omeprazole 20 mg BID 12/05/19 12/11/19 History Sertraline HCl [Zoloft] 150 mg PO DAILY 12/05/19 12/11/19 History Topiramate 25 mg BID 12/05/19 12/11/19 History clonazePAM [Klonopin] 1 mg PO TID 12/05/19 12/11/19 History lamoTRIgine [LaMICtal XR] 50 mg PO DAILY 12/05/19 12/11/19 History metFORMIN [Glucophage] 500 mg PO BID-WM 12/05/19 12/11/19 History Aspirin [Adult Aspirin Regimen] 81 mg PO DAILY #30 tablet. 12/06/19 12/11/19 Rx Atorvastatin Calcium [Lipitor] 20 mg PO HS #30 tab 12/06/19 12/11/19 Rx - History PMHx: DM2, MDD, essential tremor, early onset Alzheimer, migraine, insomnia, PUD PSHx: bariatric surgery FHx: Noncontributory Social: Mother assists with medical care. Denies tobacco use, ETOH and drug use. - Review of Systems General: denies: fever/chills, night sweats, fatigue Eyes: denies: eye pain, vision changes ENT: denies: nasal congestion, rhinorrhea Respiratory: denies: cough, congestion, shortness of breath Cardiovascular: denies: chest pain, palpitation, edema Gastrointestinal: reports: nausea. denies: vomiting, abdominal pain Genitourinary: denies: dysuria, polyuria Skin: denies: rashes, jaundice Musculoskeletal: reports: pain (R hip). denies: swelling Neurological: reports: numbness, weakness. denies: syncope, seizure Psychological: denies: anxiety, depression - Vital signs BP: [112/80] HR: [86] RR: [18] Tmax: [98] Pox: [96]% on [RA] Wt: [107.8kg] - Physical Exam Constitutional: NAD, awake, alert and oriented HEENT: normocephalic and atraumatic, PERRLA, no scleral icterus, MMM Neck: supple, trachea midline Chest: no-tender to palpation, no lesions Heart: RRR, no murmurs/rubs/gallops, no edema Lungs: CTAB, no respiratory distress, good air movement Abdomen: soft, non-tender, bowel sounds present Musculoskeletal: normal structure, ROM grossly normal -Neurological: Strength 5/5 in all extremities. L eyelid droop. Clear speech. A&Ox4. Decreased sensation to face sparing L forehead. Decreased sensation to right upper and lower extremity. Skin: no rash/lesions, no jaundice Heme/Lymphatic: no purpura, no petechia Psychiatric: normal mood and affect -Psychiatric: Good eye contact. FMR H&P: Results - Labs Result Diagrams: 12/11/19 11:32 12/11/19 11:32 Lab results: WBC 8.1 thou/uL (4.8-10.8) 12/11/19 11:32 Hgb 13.2 g/dL (12.0-16.0) 12/11/19 11:32 Hct 39.9 % (36.0-47.0) 12/11/19 11:32 MCV 87.6 fL (78.0-98.0) 12/11/19 11:32 Plt Count 345 thou/uL (130-400) 12/11/19 11:32 Neutrophils % 44.8 % (42.0-75.0) 12/11/19 11:32 Sodium 139 mmol/L (136-145) 12/11/19 11:32 Potassium 3.6 mmol/L (3.5-5.1) 12/11/19 11:32 Chloride 106 mmol/L (98-107) 12/11/19 11:32 Carbon Dioxide 22 mmol/L (22-29) 12/11/19 11:32 BUN 13 mg/dL (9.8-20.1) 12/11/19 11:32 Creatinine 0.72 mg/dL (0.6-1.1) 12/11/19 11:32 Glucose 75 mg/dL (70-105) 12/11/19 11:32 Calcium 9.3 mg/dL (7.8-10.44) 12/11/19 11:32 Total Bilirubin 0.2 mg/dL (0.2-1.2) 12/11/19 11:32 AST 22 U/L (5-34) 12/11/19 11:32 ALT 23 U/L (8-55) 12/11/19 11:32 Alkaline Phosphatase 145 U/L (40-110) H 12/11/19 11:32 Serum Total Protein 7.0 g/dL (6.0-8.3) 12/11/19 11:32 Albumin 4.2 g/dL (3.5-5.0) 12/11/19 11:32 FMR H&P: A/P - Plan Complex migraine vs. other neurologic etiology Patient reports L facial droop, R eye droop, R sided weakness, decreased sensation to R side and face. Exam showed intact strength with decreased sensation to R side and face. Nursing in ED reported patient would intermittently slur speech and report inability to move right arm or leg. Denies headache but does not right sided neck pain. CT Brain in ED normal. Previous workup normal and attributed to likely complex migraine. Unlikely to be TIA given transient changed in presentation. -Admit to stroke unit obs -Consult Dr. Matias (neurology) -Repeat MRI Brain -Frequent neuro checks -Continue ASA, statin daily Early onset Alzheimer's disease A&Ox4 today. At baseline -Monitor mentation DM2 -Restart home meds MDD -Restart home meds Essential tremor -Stable Insomnia -Restart home meds PUD s/p bariatric surgery -Restart home meds PCP: Angelika Code: FULL DVT PPx: SCDs, Lovenox Dispo: Admit to obs stroke unit, expected LOS < 48 hours FMR H&P: Upper Level - Pertinent history HPI: Patient is a 59F with early Alzheimers disease that presented to the ED after worsening R-sided weakness. She states that after her most recent hospitalization and was diagnosed with a complex migraine, her symptoms never completely resolved. At the time of exam she endorsed right-sided paresthesias but no weakness, right-eye blurriness, left-sided facial droop, R-sided forehead numbness. Denied LOPEZ. Endorsed some sob, nausea. ROS: Denies rhinorrhea, sore throat, abdominal pain, constipation/diarrhea, chest pain PE: HEENT: normocephalic/atraumatic, EOMI, nares patent, trachea midline/neck supple Respiratory: CTAB, no wheezes/rhonchi Cardio: RRR, no murmurs appreciated Abdominal: +BS, soft, non-tender to palpation Extremities: no cyanosis/clubbing/edema Neuro: Strength 5/5 upper and lower extremities; paresthesias right upper and lower extremity; paresthesias entire lower face, right forehead; left eyelid droop A/P Patient is a 59F with early Alzheimers disease that is admitted to stroke obs for: #Complex migraine vs other neurologic etiology -patient reports her symptoms never resolved from her last hospitalization -symptoms changed while patient was down in the ED -per nursing report patient had upper/lower extremity weakness and speech slurring -during our exam patient had no weakness but did have parasthesias -Brain MRI last week was normal -head CT wnl -repeat Brain MRI ordered -neurology, Dr. Matias, consulted, appreciate recs -PT consulted -neurochecks q4h #DM2 -ACHS accuchecks -continue home metformin #MDD #Essential Tremor #Peptic ulcer disease #Alzheimer's dementia -continue home meds Please refer to intern product marketing manager not for other chronic diseases/management Diet: CC DVT ppx: lovenox Dispo: stroke obs for neuro monitoring; brain MRI pending, neuro consult; expect LOS <48hrs Code: Full PCP: Angelika - Plan Date/Time: 12/11/19 [id number] I, [], have evaluated this patient and agree with findings/plan as outlined by intern product marketing manager resident. Pertinent changes/additions are listed here. Addendum - Attending - Attending Attestation Date/Time: 12/11/19 515 I personally evaluated the patient and discussed the management with Dr. Jaquez. I agree with the History, Examination, Assessment and Plan documented above with any addition or exceptions noted below. The patient presented to the er after acute onset of right upper and lower extremity tingling, left facial droop, right eyelid issue. The patient is able to move all extremities and does so without prompting while talking with her. I note some left eyelid drooping. No slurred speech noted. She was recently here for similar symptoms and had a negative MRI and was diagnosed with complex migraine. CT unremarkable today. Will get MRI and reconsult neurology. Monitor on stroke unit. Blood pressure is controlled.
[2019-12-11] MEDS ORDERED: Acetaminophen 500 MG TAB PO PRN (19:09)
[2019-12-11] MEDS ORDERED: Ibuprofen 800 MG TAB PO PRN (19:09)
[2019-12-11] MEDS ORDERED: Doxepin HCl 25 MG CAP PO SCH ×2 (20:55→21:30)
[2019-12-11] MEDS ORDERED: Insulin Regular 300 UNITS/3 ML VIAL SC PRN (20:55)
[2019-12-11] MEDS ORDERED: HumaLOG 300 UNITS/3 ML VIAL SC PRN (20:55)
[2019-12-11] MEDS ORDERED: Atorvastatin Calcium 20 MG TAB PO SCH (21:00)
[2019-12-11] MEDS: clonazePAM 1 MG TAB PO SCH (21:45)
[2019-12-11] MEDS: Topiramate 25 MG TAB PO SCH (21:46)
--- NOTE | 2019-12-12 06:10 | PDOC.FM ---
- Subjective Subjective: Pt states she is feeling much better this morning. Has had no more problems with slurred speech. Still feels dullness to touch on her RUE, RLE, right cheek and chin, and left chin. Denies any other complaints. Hopeful to be discharged today. - Objective Vital Signs & Weight: Vital Signs (12 hours) Temp Pulse Resp BP Pulse Ox 12/12/19 04:00 97.4 F L 84 15 103/61 97 12/12/19 00:00 97.4 F L 86 22 H 116/69 95 12/11/19 18:15 95 Weight Weight 107.819 kg Result Diagrams: 12/11/19 11:32 12/11/19 11:32 Phys Exam - Physical Examination Constitutional: NAD HEENT: moist MMs, sclera anicteric Neck: supple, full ROM Respiratory: clear to auscultation bilateral Cardiovascular: RRR Gastrointestinal: soft, non-tender Musculoskeletal: no edema, pulses present Neurological: non-focal, moves all 4 limbs Dullness to touch - RUE, RLE, right V2-V3, left V3 distribution Psychiatric: normal affect, A&O x 3 Skin: cap refill <2 seconds Dx/Plan - Plan Plan: Complex migraine vs. brainstem lesion vs. CVA -Continue asa, statin -Consult Dr. Matias, neurology, appreciate recs -Repeat MRI Brain, pending -Frequent neuro checks -Non-con CT and CTA brain showed no acute findings and no interval change Early onset Alzheimer's disease -At baseline -Monitor mentation DM2 -Restart home meds MDD -Restart home meds Essential tremor -Stable Insomnia -Restart home meds PUD s/p bariatric surgery -Restart home meds PCP: Angelika Code: FULL DVT PPx: SCDs, Lovenox Dispo: ELOS <48hr Plan: MRI to be done today, recent MRI was negative for any acute lesions, will also add on cervical this time. Awaiting neurology recommendations. Will continue to monitor neuro status. Addendum - Attending - Attending Attestation Date/Time: 12/12/19 4120 I personally evaluated the patient and discussed the management with Dr. Crespo. I agree with the History, Examination, Assessment and Plan documented above with any addition or exceptions noted below. Patient was feeling much better this morning. She wanted to go home. Brain and cervical MRI completed today. echo pending. If tests are negative, will d/ c home. Pt still has tingling but she thinks it is improved.
[2019-12-12] MEDS ORDERED: Diazepam 5 MG TAB PO SCH (07:00)
[2019-12-12] MEDS ORDERED: metFORMIN 500 MG TAB PO SCH (08:00)
[2019-12-12] MEDS: Topiramate 25 MG TAB PO SCH (08:46)
[2019-12-12] MEDS: clonazePAM 1 MG TAB PO SCH ×2 (08:46→14:40)
[2019-12-12] MEDS ORDERED: Doxepin HCl 25 MG CAP PO SCH ×2 (09:00→21:00)
[2019-12-12] MEDS ORDERED: Enoxaparin Sodium 40 MG/0.4 ML SYRINGE SC SCH (09:00)
[2019-12-12] MEDS ORDERED: lamoTRIgine 25 MG TAB PO SCH (09:00)
[2019-12-12] MEDS ORDERED: Prevnar 13-Val Conj/PF 0.5 ML SYRINGE IM ONE (09:00)
[2019-12-12] MEDS ORDERED: Aripiprazole 10 MG TAB PO SCH (09:00)
[2019-12-12] MEDS ORDERED: Aspirin 81 mg Enteric Coated Tablet PO SCH (09:00)
--- NOTE | 2019-12-12 10:30 | MRI ---
MRI BRAIN WITHOUT CONTRAST: HISTORY: Left facial droop, right-sided numbness and tingling COMPARISON: 12/06/2019 CORRELATION: CT scan from 12/11/2019. FINDINGS: No restricted diffusion is seen. The ventricular size is appropriate and the basilar cisterns are pat ent. No evidence of acute infarct, hemorrhage, midline shift or abnormal extra-axial fluid collections is seen. The visualized paranasal sinuses and mastoid air cells are well-aerated. IMPRESSION: No evidence of acute intracranial process.
--- NOTE | 2019-12-12 12:01 | PDOC.NEUPN ---
- Subjective Encounter Date: 12/12/19 Subjective: Patient feels much better today but still has mild facial and UE numbness. - Objective Vital Signs & Weight: Vital Signs (12 hours) Temp Pulse Resp BP Pulse Ox 12/12/19 07:38 97.9 F 82 16 114/73 98 12/12/19 04:00 97.4 F L 84 15 103/61 97 12/12/19 00:00 97.4 F L 86 22 H 116/69 95 Weight Weight 237 lb 11.2 oz Result Diagrams: 12/11/19 11:32 12/11/19 11:32 Additional Labs: Accuchecks 12/12/19 12/12/19 12/11/19 11:43 05:51 20:19 POC Glucose 94 104 214 H 12/11/19 12/11/19 16:40 11:37 POC Glucose 88 73 Radiology Reviewed by me: Yes EKG Reviewed by me: Yes ROS - Review of Systems Constitutional: denies: fever, chills, sweats, weakness, malaise, other Eyes: denies: pain, vision change, conjunctivae inflammation, eyelid inflammation, redness, other ENT: denies: ear pain, ear discharge, nose pain, nose discharge, nose congestion , mouth pain, mouth swelling, throat pain, throat swelling, other Respiratory: denies: cough, dry, shortness of breath, hemoptysis, SOB with excertion, pleuritic pain, sputum, wheezing, other Cardiovascular: denies: no pertinent history, AFIB, CAD, CHF, HTN, AK, Syncope, Hyperlipidemia, Mitral valve stenosis, Aortic stenosis, Valve insufficiency, Pulmonary hypertension, Other Gastrointestinal: denies: nausea, vomiting, abdominal pain, diarrhea, constipation, melena, hematochezia, other Genitourinary: denies: dysuria, frequency, incontinence, hematuria, retention, other Musculoskeletal: denies: neck pain, shoulder pain, arm pain, back pain, hand pain, leg pain, foot pain, other Neurological: reports: weakness, numbness, incoordination. denies: change in speech, confusion, seizures, other - Medication Medications: Active Medications Generic Name Dose Route Start Last Admin Trade Name Freq PRN Reason Stop Dose Admin Aripiprazole 10 mg 12/12/19 09:00 12/12/19 08:46 Abilify PO 10 mg DAILY MONTY Administration Aspirin 81 mg 12/12/19 09:00 12/12/19 08:46 Ecotrin PO 81 mg DAILY MONTY Administration Atorvastatin Calcium 20 mg 12/11/19 21:00 12/11/19 21:45 Lipitor PO 20 mg HS MONTY Administration Clonazepam 1 mg 12/11/19 21:00 12/12/19 08:46 Klonopin PO 1 mg TID MONTY Administration Diazepam 5 mg 12/12/19 07:00 12/12/19 08:47 Valium PO 12/12/19 19:00 5 mg WILLCALL MONTY Administration Enoxaparin Sodium 40 mg 12/12/19 09:00 12/12/19 08:45 Lovenox SC 40 mg 0900 MONTY Administration Insulin Human Lispro 0 units 12/11/19 20:55 12/11/19 22:07 Humalog SC 2 unit .MILD SLIDING SCALE PRN Administration Mild Correctional Scale Lamotrigine 50 mg 12/12/19 09:00 12/12/19 08:46 Lamictal PO 50 mg DAILY MONTY Administration Metformin HCl 500 mg 12/12/19 08:00 12/12/19 08:47 Glucophage PO 500 mg BID-WM MONTY Administration Pantoprazole Sodium 40 mg 12/11/19 21:00 12/12/19 08:46 Protonix PO 40 mg BID MONTY Administration Sertraline HCl 150 mg 12/12/19 09:00 12/12/19 08:45 Zoloft PO 150 mg DAILY MONTY Administration Topiramate 25 mg 12/11/19 21:00 12/12/19 08:46 Topamax PO 25 mg BID MONTY Administration - Exam General Appearance: awake alert Eye: PERRL ENT: normocephalic atraumatic Neck: supple Respiratory: CTAB Cardiovascular: RRR Gastrointestinal: soft Extremities: no cyanosis Skin: normal turgor Neurological: no new deficit Musculoskeletal: normal tone, no muscle wasting PSYCH: normal affect, normal behavior, A&O x 3, oriented to person, oriented to place, oriented to time Results - Labs Result Diagrams: 12/11/19 11:32 12/11/19 11:32 Lab results: WBC 8.1 thou/uL (4.8-10.8) 12/11/19 11:32 Hgb 13.2 g/dL (12.0-16.0) 12/11/19 11:32 Hct 39.9 % (36.0-47.0) 12/11/19 11:32 MCV 87.6 fL (78.0-98.0) 12/11/19 11:32 Plt Count 345 thou/uL (130-400) 12/11/19 11:32 Neutrophils % 44.8 % (42.0-75.0) 12/11/19 11:32 Sodium 139 mmol/L (136-145) 12/11/19 11:32 Potassium 3.6 mmol/L (3.5-5.1) 12/11/19 11:32 Chloride 106 mmol/L (98-107) 12/11/19 11:32 Carbon Dioxide 22 mmol/L (22-29) 12/11/19 11:32 BUN 13 mg/dL (9.8-20.1) 12/11/19 11:32 Creatinine 0.72 mg/dL (0.6-1.1) 12/11/19 11:32 Glucose 75 mg/dL (70-105) 12/11/19 11:32 Calcium 9.3 mg/dL (7.8-10.44) 12/11/19 11:32 Total Bilirubin 0.2 mg/dL (0.2-1.2) 12/11/19 11:32 AST 22 U/L (5-34) 12/11/19 11:32 ALT 23 U/L (8-55) 12/11/19 11:32 Alkaline Phosphatase 145 U/L (40-110) H 12/11/19 11:32 Troponin I Less than 0.010 ng/mL (< 0.028) 12/11/19 11:32 Serum Total Protein 7.0 g/dL (6.0-8.3) 12/11/19 11:32 Albumin 4.2 g/dL (3.5-5.0) 12/11/19 11:32 - EKG Interpretation EKG: NSR - Radiology Interpretation MRI - head Status: image reviewed by me (No acute intracranial pathology) PN A/P (1) Neck pain Code(s): M54.2 - CERVICALGIA Status: Acute (2) Weakness Code(s): R53.1 - WEAKNESS Status: Acute - Plan Daily Plan: PT/OT, speech therapy 59 year old with early onset Alzeihmer presented with worsening R sided paraesthesias with weakness with left facial numbness which is getting better. Repeat Brain MRI reviewed and was negative for acute intracranial pathology. Cervical spine MRI pending. CTA head unremarkable CTA neck pending. 2 D echo pending. Neurochecks every 4 hours. Telemetry Continue ASA 81mg daily and atorvastatin 80mg daily for secondary stroke prevention. PT/OT/ Speech. Strict control of BP and BG. Continue home medications. Continue medical management per primary team. Plan discussed with the patient , and during stroke rounds.
--- NOTE | 2019-12-12 13:07 | CON ---
NEUROLOGY CONSULTATION DATE OF CONSULTATION: 12/11/2019 REASON FOR CONSULTATION: Right-sided numbness and paresthesias. HISTORY OF PRESENT ILLNESS: Ms. English is a 59-year-old female with history significant for early-onset Alzheimer dementia, diabetes mellitus, hypertension , and recent hip fracture, presented to the emergency room with right-sided focal paresthesias with weakness. Per the patient, she woke up around 10:30 and had severe pain on the right side of the neck followed by numbness, tingling, and weakness on the right side of the body. She also has a facial droop. However, the patient denies headache. The patient was recently admitted with similar complaints on 12/05/2019 and was discharged on 12/06/2019. MRI done at that time was negative. CT angiography done on 12/05/2019 of the head and neck did not reveal hemodynamically significant stenosis. There was a concern about complicated migraine with neurological features and she was discharged versus TIA. She was discharged on aspirin and high-intensity statin. However, this morning, she had a similar complaint and decided to come to the ER for further evaluation. The head CT done today did not reveal any acute intracranial pathology. The patient denies nausea, vomiting, chest pain, abdominal pain, recent illness, recent COVID exposure, blurred vision, loss of vision, loss of consciousness, vertigo, dizziness, slurred speech, or difficulty swallowing associated with the episode. PAST MEDICAL HISTORY: Hypertension, depression, early-onset Alzheimer disease, diabetes mellitus type 2. PAST SURGICAL HISTORY: Exploratory laparotomy in May 2019, hysterectomy, cholecystectomy, appendectomy, breast lift, and tummy tuck. FAMILY HISTORY: She has multiple TIAs, and maternal grandfather had TIAs and stroke. SOCIAL HISTORY: The patient denies alcohol, illegal drug use, or tobacco abuse. She is currently on disability due to early-onset Alzheimer's. - Allergies/Adverse Reactions Allergies Allergy/AdvReac Type Severity Reaction Status Date / Time No Known Allergies Allergy Verified 12/11/19 15:50 - Home Medications Medication Instructions Recorded Confirmed Type Acetaminophen [Tylenol Extra 1,000 mg PO Q4HR PRN 12/05/19 12/11/19 History Strength] Aripiprazole [Abilify] 10 mg PO DAILY 12/05/19 12/11/19 History Doxepin HCl 25 mg PO DAILY 12/05/19 12/11/19 History Ibuprofen [Motrin] 800 mg PO TID PRN 12/05/19 12/11/19 History Omeprazole 20 mg BID 12/05/19 12/11/19 History Sertraline HCl [Zoloft] 150 mg PO DAILY 12/05/19 12/11/19 History Topiramate 25 mg BID 12/05/19 12/11/19 History clonazePAM [Klonopin] 1 mg PO TID 12/05/19 12/11/19 History lamoTRIgine [LaMICtal XR] 50 mg PO DAILY 12/05/19 12/11/19 History metFORMIN [Glucophage] 500 mg PO BID-WM 12/05/19 12/11/19 History Aspirin [Adult Aspirin Regimen] 81 mg PO DAILY #30 tablet. 12/06/19 12/11/19 Rx Atorvastatin Calcium [Lipitor] 20 mg PO HS #30 tab 12/06/19 12/11/19 Rx - Review of Systems General: denies: fever/chills, night sweats, fatigue Eyes: denies: eye pain, vision changes ENT: denies: nasal congestion, rhinorrhea Respiratory: denies: cough, congestion, shortness of breath Cardiovascular: denies: chest pain, palpitation, edema Gastrointestinal: reports: nausea. denies: vomiting, abdominal pain Genitourinary: denies: dysuria, polyuria Skin: denies: rashes, jaundice Musculoskeletal: reports: pain (R hip). denies: swelling Neurological: reports: numbness, weakness. denies: syncope, seizure Psychological: denies: anxiety, depression PHYSICAL EXAMINATION: VITAL SIGNS: Blood pressure 120/60, pulse 80, respiratory rate 18. CARDIOVASCULAR SYSTEM: Regular rate and rhythm. CHEST: Clear. ABDOMEN: Soft. NECK: Supple. NEUROLOGIC: Mental status: The patient is alert and oriented to person, place , and time. Speech is clear. Fund of knowledge is appropriate. Cranial nerves 2 through 12 intact except 7, right facial droop. Motor: Muscle tone and bulk are normal. Strength is 5/5 in the left upper and lower extremities, 4/5 in the right upper and lower extremities. Sensation: Decreased sensation to light touch in the right upper and lower extremities. Positive for right pronator drift. Cerebellar: Finger-nose testing intact. Gait: Deferred due to the patient's safety reasons. DATA REVIEWED: I reviewed the labs. They are unremarkable. EKG showed normal sinus rhythm. CT scan was reviewed and was negative for acute intracranial pathology. - 12/11/19 11:32 Lab results: WBC 8.1 thou/uL (4.8-10.8) 12/11/19 11:32 Hgb 13.2 g/dL (12.0-16.0) 12/11/19 11:32 Hct 39.9 % (36.0-47.0) 12/11/19 11:32 MCV 87.6 fL (78.0-98.0) 12/11/19 11:32 Plt Count 345 thou/uL (130-400) 12/11/19 11:32 Neutrophils % 44.8 % (42.0-75.0) 12/11/19 11:32 Sodium 139 mmol/L (136-145) 12/11/19 11:32 Potassium 3.6 mmol/L (3.5-5.1) 12/11/19 11:32 Chloride 106 mmol/L (98-107) 12/11/19 11:32 Carbon Dioxide 22 mmol/L (22-29) 12/11/19 11:32 BUN 13 mg/dL (9.8-20.1) 12/11/19 11:32 Creatinine 0.72 mg/dL (0.6-1.1) 12/11/19 11:32 Glucose 75 mg/dL (70-105) 12/11/19 11:32 Calcium 9.3 mg/dL (7.8-10.44) 12/11/19 11:32 Total Bilirubin 0.2 mg/dL (0.2-1.2) 12/11/19 11:32 AST 22 U/L (5-34) 12/11/19 11:32 ALT 23 U/L (8-55) 12/11/19 11:32 Alkaline Phosphatase 145 U/L (40-110) H 12/11/19 11:32 Serum Total Protein 7.0 g/dL (6.0-8.3) 12/11/19 11:32 Albumin 4.2 g/dL (3.5-5.0) 12/11/19 11:32 ASSESSMENT AND PLAN: Ms. English is a 59-year-old female who has been readmitted for right hemiparesis with right focal paresthesias. At this time, the patient denies migraines, but does admit to have significant pain in the right side of the neck. Consider repeat MRI of the brain to rule out acute intracranial process and also cervical MRIs since the patient is complaining of neck pain. Consider echocardiogram to evaluate for left ventricular ejection fraction. Continue aspirin and high-intensity statin for secondary stroke prevention. Continue pain control. Neuro checks every 4 hours. Continue home medications. Permissive control of blood pressure at this time. Strict control of blood glucose. Physical Therapy/Occupational Therapy/Speech. Continue medical management per primary team. Plan discussed in detail with the patient and also communicated with the primary team. Deep venous thrombosis prophylaxis. Further recommendations depend on the results of the testing. Thank you for the consult. Job ID: [id number] MTDD
[2019-12-12 15:27] VITALS: BP 112/77; TEMP 97.7
--- NOTE | 2019-12-12 16:03 | MRI ---
MRI cervical spine noncontrast HISTORY: Right radiculopathy. Neck pain. FINDINGS: Spinal cord throughout cervical levels has a normal appearance. Vertebral body heights and alignment are maintained. Bone marrow signal is within normal limits. Central canal and neural foramina are patent. No focal disc herniation or nerve root compression. IMPRESSION : No abnormalities are demonstrated.
--- NOTE | 2019-12-13 07:27 | DIS ---
DATE OF ADMISSION: 12/11/2019 DATE OF DISCHARGE: 12/12/2019 ADMITTING ATTENDING: Tessy Carney MD DISCHARGE ATTENDING: Tessy Carney MD RESIDENT: Khari Crespo DO CONSULTS: Neurology, Dr. Sanna Matias. PROCEDURES: None. IMAGING: CT [place] with contrast on 12/11/2019, impression; no acute vascular abnormalities or other significant abnormalities demonstrated. Brain CT 12/11/2019, impression; no acute findings and no interval change from recent study. Brain MRI on 12/12/2019, impression; no evidence of acute intracranial process. Cervical spine MRI on 12/12/2019, impression; no abnormalities are demonstrated. PRIMARY DIAGNOSIS: Paresthesias of unknown etiology, possibly secondary to complex migraine. SECONDARY DIAGNOSES: Early onset Alzheimer's, type 2 diabetes, major depressive disorder, essential tremor, insomnia, and peptic ulcer disease. DISCHARGE MEDICATIONS: 1. Ibuprofen 800 mg t.i.d. p.r.n. 2. Lamotrigine 50 mg daily. 3. Sertraline 150 mg daily. 4. Clonazepam 1 mg t.i.d. 5. Doxepin 25 mg at bedtime. 6. Abilify 10 mg daily. 7. Acetaminophen 1000 mg p.o. q.4 hours p.r.n. 8. Metformin 500 mg b.i.d. 9. Topiramate 25 mg b.i.d. 10. Omeprazole 20 mg b.i.d. 11. Aspirin 81 mg daily. 12. Atorvastatin 20 mg at bedtime. HISTORY OF PRESENT ILLNESS AND HOSPITAL COURSE: A 59-year-old female with past medical history of Alzheimer's, type 2 diabetes, and major depressive disorder, presented to the emergency department with complaints of left facial droop, right eye droop, decreased facial sensation with sparing of forehead and right-sided weakness with numbness and tingling. She was recently admitted to the hospital with similar complaints, but noted an acute exacerbation of her symptoms, prompting her to seek re-evaluation. At her last admission, the patient was diagnosed with complex migraine prior to discharge. In the emergency department, she had CT and CTA of head and neck, which was negative for any acute findings. At that time, she was admitted to the hospital, her weakness and facial droop resolved and was not seen by any providers. She did note continuation of numbness to her right cheek and chin as well as her left chin as well as numbness whereas she described dullness to touch of her right upper extremity and right lower extremity. Following day, the patient was seen by Neurology, Dr. Sanna Matias. She had an MRI of the brain and cervical spine, which was negative for any acute findings. Dr. Matias recommended echocardiogram be performed. This was discussed with the patient, who preferred to have this done at her [facility], Dr. Betancourt as previously scheduled for later in the week. After further discussions, she was eventually agreeable to having an echocardiogram done, but preferred to not wait for the results prior to discharge. We agreed to call her with the results. Dr. Matias also recommended that the patient maintain tight glucose and blood pressure control. Her medications are already optimized. We recommended that she continue to follow up with her PCP and specialist as directed. DISCHARGE INSTRUCTIONS: 1. Location: Home. 2. Diet: Carb conscious, heart healthy. 3. Activity: As tolerated. 4. Followup: With PCP, Dr. Carney within 7 days; Cardiology, Dr. Betancourt later this week; Neurology as directed. Job ID: [id number]
== END 2019-12-12 17:20 | disposition home or self-care (01) ==
LOC: ERS 11:27 → 2SE 13:13
PROVIDERS: ADMIT Family Medicine; ATTEND Family Medicine
DX: R20.2 Paresthesia of skin (principal); G30.0 Alzheimer's disease with early onset; F02.80 Dementia in other diseases classified elsewhere, unspecified severity, without behavioral disturbance, psychotic disturbance, mood disturbance, and anxiety; E11.9 Type 2 diabetes mellitus without complications; F32.9 Major depressive disorder, single episode, unspecified; R25.1 Tremor, unspecified; G47.00 Insomnia, unspecified; K27.9 Peptic ulcer, site unspecified, unspecified as acute or chronic, without hemorrhage or perforation; Z79.82 Long term (current) use of aspirin; Z79.84 Long term (current) use of oral hypoglycemic drugs; Z79.899 Other long term (current) drug therapy
CPT/HCPCS: 36416; 70450; 70496; 70498; 70551; 72141; 80053; 84484; 85025; 93005; 93306; 96372; 96374; G0378; J1650; J2405; Q9967

== ENCOUNTER 2019-12-21 08:07 | Outpatient (CLI) | payer MEDICARE ==
--- NOTE | 2019-12-21 08:47 | BD ---
DEXA bone density examination HISTORY: 59-year-old postmenopausal female for screening COMPARISON: None FINDINGS: L1--bone mineral density 0.956 g/sq cm; T score -0.3 L2--bone mineral density 1.053 g/sq cm; T score 0.2 L3--bone mineral density 1.063 g/sq cm; T score -0.2 L4--bone mineral density 0.976 g/sq cm; T score -0.8 Total L1-L4--bone mineral density 1.011 g/sq cm; T score -0.3 Left femoral neck--bone mineral density0.752 g/sq cm; T score -0.9 Total proximal left femur--bone mineral density 0.894 g/sq cm ; T score -0.4 IMPRESSION: Normal bone mineralization lumbar spine and left femoral neck.
== END 2019-12-21 08:08 | disposition home or self-care (01) ==
LOC: BICMAMMO 08:07
PROVIDERS: ATTEND Family Medicine
DX: Z13.820 Encounter for screening for osteoporosis (principal); S72.001D Fracture of unspecified part of neck of right femur, subsequent encounter for closed fracture with routine healing
CPT/HCPCS: 77080

== ENCOUNTER 2020-07-24 23:12 | Observation (INO) | payer MEDICARE ==
[2020-07-24] MEDS ORDERED: Mag-Al 1200 mg/1200 mg/30 ML UDCUP ONE (23:25)
[2020-07-24] MEDS ORDERED: Nitroglycerin 2% Ointment 1 INCH/1 GM Packet ONE (23:25)
[2020-07-24] MEDS ORDERED: Aspirin Chewable 81 MG TAB ONE (23:25)
[2020-07-24] MEDS ORDERED: Lidocaine Viscous Sol 2% 15 ml UD Cup ONE (23:25)
[2020-07-24 23:52] LABS: #Basophils 0.1 thou/uL (0.0-0.2); #Eosinphils 0.2 thou/uL (0.0-0.7); #Monocytes 0.7 thou/uL (0.11-0.59); #Neutrophils 8.9 thou/uL (1.40-6.50); %Basophils 0.5 % (0.0-1.0); %Eosinophils 1.3 % (0.0-10.0); %Lymphocytes 16.6 % (21.0-51.0); %Monocytes 5.9 % (0.0-10.0); %Neutrophils 75.7 % (42.0-75.0); Hemoglobin 10.5 g/dL (12.0-16.0); Mean Corpuscular HGB CONC 32.2 g/dL (32.0-36.0); Mean Corpuscular Hemoglobin 26.9 pg (27.0-31.0); Mean Corpuscular Volume 83.7 fL (78.0-98.0); Mean Platelet Volume 8.2 fL (7.4-10.4); Platelet Count 313 thou/uL (130-400); RBC Distribution Width 14.2 % (11.5-14.5); White Blood Cell (WBC) Count 11.7 thou/uL (4.8-10.8)
[2020-07-25] MEDS ORDERED: Morphine 4 MG/ML VIAL ONE (00:12)
[2020-07-25 00:13] LABS: ALT (SGPT) 43 U/L (8-55); AST (SGOT) 94 U/L (5-34); Albumin 4.5 g/dL (3.5-5.0); Alkaline Phosphatase 312 U/L (40-110); Anion Gap 19 mmol/L (10-20); BUN (Urea Nitrogen) 15 mg/dL (9.8-20.1); Bilirubin, Total 0.4 mg/dL (0.2-1.2); Calc. Creatinine Clearance 0 mL/min (70-130); Calcium 9.8 mg/dL (7.8-10.44); Carbon Dioxide 22 mmol/L (22-29); Chloride 103 mmol/L (98-107); Globulin 2.6 g/dL (2.4-3.5); Glucose 160 mg/dL (70-105); Potassium 3.8 mmol/L (3.5-5.1); Protein, Total 7.1 g/dL (6.0-8.3); Sodium 140 mmol/L (136-145)
[2020-07-25] MEDS ORDERED: Ondansetron PF 4 MG/2 ML Vial ONE ×3 (00:13→08:06)
[2020-07-25] MEDS ORDERED: Ondansetron ODT 4 MG TAB PO PRN (01:45)
[2020-07-25] MEDS ORDERED: Acetaminophen 325 MG TAB PO PRN (01:45)
[2020-07-25] MEDS ORDERED: Acetaminophen 325 MG TAB ONE (02:30)
[2020-07-25 02:34] VITALS: BMI 34.8
[2020-07-25 03:16] LABS: Hemoglobin A1c 5.9 % (4.0-6.0)
[2020-07-25] MEDS ORDERED: Promethazine HCl 12.5 MG in Sodium Chloride 0.9% 50 ML IVPB PRN (03:26)
[2020-07-25 03:29] LABS: #Lymphocytes 1.9 thou/uL (1.20-3.40); #Monocytes 0.8 thou/uL (0.11-0.59); #Neutrophils 9.5 thou/uL (1.40-6.50); %Basophils 0.4 % (0.0-1.0); %Eosinophils 0.3 % (0.0-10.0); %Lymphocytes 15.7 % (21.0-51.0); %Monocytes 6.1 % (0.0-10.0); %Neutrophils 77.5 % (42.0-75.0); Hemoglobin 13.2 g/dL (12.0-16.0); Mean Corpuscular HGB CONC 33.1 g/dL (32.0-36.0); Mean Corpuscular Hemoglobin 27.2 pg (27.0-31.0); Mean Corpuscular Volume 82.2 fL (78.0-98.0); Mean Platelet Volume 8.7 fL (7.4-10.4); Platelet Count 308 thou/uL (130-400); RBC Distribution Width 14.2 % (11.5-14.5); Red Blood Cell (RBC) Count 4.87 mill/uL (4.20-5.40); White Blood Cell (WBC) Count 12.3 thou/uL (4.8-10.8)
[2020-07-25 03:33] LABS: Troponin I Less than 0.010 ng/mL (< 0.028)
[2020-07-25] MEDS ORDERED: Promethazine HCl 25 MG/ML VIAL ONE (03:48)
[2020-07-25 03:50] LABS: Anion Gap 20 mmol/L (10-20); BUN (Urea Nitrogen) 17 mg/dL (9.8-20.1); Calc. Creatinine Clearance 136 mL/min (70-130); Calcium 9.8 mg/dL (7.8-10.44); Carbon Dioxide 15 mmol/L (22-29); Cardiac Risk 3.2 (Less than 4.5); Chloride 105 mmol/L (98-107); Cholesterol 164 mg/dl (< 200 Desired); Glucose 136 mg/dL (70-105); HDL Cholesterol 52 mg/dL (>60 Neg Risk); LDL Cholesterol, Calculated 99 mg/dL; Potassium 4.7 mmol/L (3.5-5.1); Sodium 135 mmol/L (136-145); Triglycerides 64 mg/dL (Less than 150)
[2020-07-25] MEDS ORDERED: Cyclobenzaprine 10 MG TAB PO PRN (04:13)
[2020-07-25 06:33] LABS: Troponin I Less than 0.010 ng/mL (< 0.028)
[2020-07-25 07:38] LABS: SARS-CoV-2 PCR by NAA Not Detected (NotDetected)
[2020-07-25] MEDS ORDERED: Famotidine 20 MG TAB PO SCH (08:00)
[2020-07-25] MEDS ORDERED: Ondansetron PF 4 MG/2 ML Vial IVP PRN (08:00)
[2020-07-25] MEDS: Aspirin 81 mg Enteric Coated Tablet PO SCH ×2 (08:57→09:47)
[2020-07-25] MEDS ORDERED: Enoxaparin Sodium 40 MG/0.4 ML SYRINGE SC SCH (09:00)
[2020-07-25] MEDS ORDERED: Aripiprazole 10 MG TAB PO SCH (09:00)
[2020-07-25] MEDS ORDERED: LAMOTRIGINE 50 MG PO SCH (09:00)
[2020-07-25] MEDS ORDERED: clonazePAM 1 MG TAB PO SCH (09:00)
[2020-07-25] MEDS ORDERED: Non-Formulary Item 1 EACH (Omeprazole [Omeprazole] 20 MG Tablet.Dr) PO SCH (09:00)
[2020-07-25] MEDS ORDERED: Gabapentin 300 MG CAP PO SCH (09:00)
[2020-07-25] MEDS ORDERED: Aspirin Chewable 81 MG TAB ONE (09:39)
[2020-07-25] MEDS ORDERED: Doxepin HCl 25 MG CAP PO SCH (21:00)
[2020-07-25] MEDS ORDERED: Atorvastatin Calcium 20 MG TAB PO SCH (21:00)
== END 2020-07-25 13:07 | disposition home or self-care (01) ==
LOC: ERS 23:12 → ERHOLD 07-25 01:30
PROVIDERS: ADMIT Family Medicine; ATTEND Family Medicine
DX: R07.89 Other chest pain (principal); R11.2 Nausea with vomiting, unspecified; K44.9 Diaphragmatic hernia without obstruction or gangrene; E78.5 Hyperlipidemia, unspecified; R73.03 Prediabetes; G43.709 Chronic migraine without aura, not intractable, without status migrainosus; G30.0 Alzheimer's disease with early onset; F02.80 Dementia in other diseases classified elsewhere, unspecified severity, without behavioral disturbance, psychotic disturbance, mood disturbance, and anxiety; I10 Essential (primary) hypertension; K21.9 Gastro-esophageal reflux disease without esophagitis; Z79.84 Long term (current) use of oral hypoglycemic drugs; Z79.899 Other long term (current) drug therapy; Z20.822 Contact with and (suspected) exposure to COVID-19
CPT/HCPCS: 71045; 80048; 80053; 80061; 83036; 84443; 84484 ×3; 85025 ×2; 93005; 96374; 96375 ×2; 96376 ×2; 99285; G0378; U0003; U0005; 36415; 87635; J2270; J2405; J2550

== ENCOUNTER 2020-08-11 11:29 | Emergency (ER) | payer MEDICARE ==
[2020-08-11] MEDS ORDERED: Iopamidol-370 76% 500 ML 1 ML ONE (11:40)
[2020-08-11 12:36] LABS: #Basophils 0.1 thou/uL (0.0-0.2); #Eosinphils 0.5 thou/uL (0.0-0.7); #Lymphocytes 2.7 thou/uL (1.20-3.40); #Monocytes 0.4 thou/uL (0.11-0.59); #Neutrophils 4.1 thou/uL (1.40-6.50); %Basophils 1.2 % (0.0-1.0); %Lymphocytes 33.8 % (21.0-51.0); %Monocytes 5.5 % (0.0-10.0); %Neutrophils 52.5 % (42.0-75.0); Hemoglobin 12.7 g/dL (12.0-16.0); Mean Corpuscular HGB CONC 31.3 g/dL (32.0-36.0); Mean Corpuscular Hemoglobin 26.1 pg (27.0-31.0); Mean Corpuscular Volume 83.5 fL (78.0-98.0); Mean Platelet Volume 7.8 fL (7.4-10.4); Platelet Count 446 thou/uL (130-400); RBC Distribution Width 15.3 % (11.5-14.5); Red Blood Cell (RBC) Count 4.85 mill/uL (4.20-5.40); White Blood Cell (WBC) Count 7.9 thou/uL (4.8-10.8)
[2020-08-11] MEDS ORDERED: Ondansetron PF 4 MG/2 ML Vial ONE (12:46)
[2020-08-11] MEDS ORDERED: Morphine 4 MG/ML VIAL ONE (12:46)
[2020-08-11 12:59] LABS: ALT (SGPT) 17 U/L (8-55); AST (SGOT) 18 U/L (5-34); Albumin 3.8 g/dL (3.5-5.0); Alkaline Phosphatase 211 U/L (40-110); Anion Gap 16 mmol/L (10-20); BUN (Urea Nitrogen) 10 mg/dL (9.8-20.1); Bilirubin, Total 0.3 mg/dL (0.2-1.2); Calc. Creatinine Clearance 0 mL/min (70-130); Calcium 8.9 mg/dL (7.8-10.44); Carbon Dioxide 22 mmol/L (22-29); Chloride 105 mmol/L (98-107); Globulin 2.4 g/dL (2.4-3.5); Glucose 95 mg/dL (70-105); Lipase 6 U/L (8-78); Potassium 4.5 mmol/L (3.5-5.1); Protein, Total 6.2 g/dL (6.0-8.3); Sodium 138 mmol/L (136-145)
[2020-08-11 13:33] LABS: Bacteria/HPF 1+ HPF (None Seen); Bilirubin Negative (Negative); Blood, Urine Negative (Negative); Clarity Clear (Clear); Glucose, Urine (Dipstick) Normal (Negative); Ketone, Urine Negative (Negative); Leukocyte 75 Leu/uL (Negative); Nitrite Negative (Negative); Protein, Urine (Dipstick) Negative (Neg-Trace); RBC/HPF 0-3 HPF (0-3); Specific Gravity, Urine 1.011 (1.002-1.036); Urobilinogen Normal mg/dL (Less than 2); pH, Urine 6.5 (5.0-9.0)
[2020-08-11] MEDS ORDERED: Magnesium Citrate 300 ML BOT ONE (14:27)
[2020-08-11 15:23] LABS: Bilirubin Negative (Negative); Blood, Urine Negative (Negative); Clarity Clear (Clear); Glucose, Urine (Dipstick) Normal (Negative); Ketone, Urine Negative (Negative); Leukocyte Negative Leu/uL (Negative); Nitrite Negative (Negative); Protein, Urine (Dipstick) Negative (Neg-Trace); Specific Gravity, Urine 1.027 (1.002-1.036); Urobilinogen Normal mg/dL (Less than 2)
== END 2020-08-11 16:00 | disposition home or self-care (01) ==
LOC: ERS 11:29
DX: G89.18 Other acute postprocedural pain (principal); R10.32 Left lower quadrant pain; K59.00 Constipation, unspecified; Z79.899 Other long term (current) drug therapy
CPT/HCPCS: 51701; 74177; 80053; 81003; 81015; 83690; 85025; 96374; 96375; J2270; J2405; Q9967

== ENCOUNTER 2021-01-21 09:36 | Outpatient (CLI) | payer MEDICARE | END 2021-01-21 09:37 | disposition home or self-care (01) | LOC: BICRAD 09:36 | PROVIDERS: ATTEND Specialist | DX: M25.552 Pain in left hip (principal) ==

== ENCOUNTER 2023-04-15 08:29 | Inpatient (IN) | payer MEDICARE ==
[2023-04-15 09:06] LABS: #Basophils 0.1 thou/uL (0.0-0.2); #Eosinphils 0.5 thou/uL (0.0-0.7); #Monocytes 0.6 thou/uL (0.11-0.59); #Neutrophils 6.4 thou/uL (1.40-6.50); %Basophils 0.5 % (0.0-1.0); %Eosinophils 5.1 % (0.0-10.0); %Lymphocytes 22.8 % (21.0-51.0); %Monocytes 5.8 % (0.0-10.0); %Neutrophils 65.5 % (42.0-75.0); Hematocrit 30.7 % (36.0-47.0); Hemoglobin 8.7 g/dL (12.0-16.0); Mean Corpuscular HGB CONC 28.3 g/dL (32.0-36.0); Mean Corpuscular Hemoglobin 19.7 pg (27.0-31.0); Mean Corpuscular Volume 69.6 fl (78.0-98.0); Mean Platelet Volume 10.1 fL (7.4-10.4); Platelet Count 411 10x3/uL (130-400); RBC Distribution Width 18.7 % (11.5-14.5); Red Blood Cell (RBC) Count 4.41 mill/uL (4.20-5.40); White Blood Cell (WBC) Count 9.8 10x3/uL (4.8-10.8)
[2023-04-15 09:27] LABS: INR-International Normal Ratio 1.1; PTT 32.3 sec (22.9-36.1)
[2023-04-15 09:30] LABS: ALT (SGPT) 14 U/L (8-55); AST (SGOT) 15 U/L (5-34); Albumin 3.6 g/dL (3.5-5.0); Alkaline Phosphatase 155 U/L (40-110); Anion Gap 13 mmol/L (10-20); BUN (Urea Nitrogen) 13 mg/dL (9.8-20.1); Bilirubin, Total 0.2 mg/dL (0.2-1.2); Calc. Creatinine Clearance 0 mL/min (70-130); Calcium 8.5 mg/dL (7.8-10.44); Carbon Dioxide 22 mmol/L (22-29); Chloride 102 mmol/L (98-107); Estimated GFR 99; Globulin 2.3 g/dL (2.4-3.5); Glucose 101 mg/dL (70-105); Potassium 4.3 mmol/L (3.5-5.1); Protein, Total 5.9 g/dL (6.0-8.3); Sodium 133 mmol/L (136-145)
[2023-04-15 09:32] LABS: Troponin I Less than 0.010 ng/mL (< 0.028)
[2023-04-15] MEDS ORDERED: Meclizine HCl 25 MG TAB ONE (09:56)
[2023-04-15] MEDS ORDERED: Ondansetron PF 4 MG/2 ML Vial IVP PRN (10:22)
[2023-04-15] MEDS ORDERED: Acetaminophen 650 MG Suppository PR PRN (10:22)
[2023-04-15] MEDS ORDERED: Acetaminophen 325 MG TAB PO PRN (10:22)
[2023-04-15] MEDS ORDERED: Sodium Chloride 0.9% 1,000 ML IV SCH (10:30)
[2023-04-15 11:01] LABS: Hemoglobin A1c 6.2 % (4.0-6.0)
[2023-04-15] MEDS ORDERED: Pantoprazole 40 MG VIAL ONE (13:10)
[2023-04-15] MEDS ORDERED: Iopamidol-370 76% 500 ML MDV (1 ML CHARGE) ONE (13:22)
[2023-04-15 14:02] VITALS: BMI 32.2
[2023-04-15] MEDS ORDERED: Ondansetron ODT 4 MG TAB PO PRN (14:20)
[2023-04-15] MEDS ORDERED: Acetaminophen/Codeine 30-300mg Tablet PO PRN (14:38)
[2023-04-15] MEDS ORDERED: clonazePAM 1 MG TAB PO SCH ×2 (15:00→21:00)
[2023-04-15] MEDS ORDERED: metFORMIN 500 MG TAB PO SCH (17:00)
[2023-04-15] MEDS ORDERED: Donepezil HCl 5 MG TAB PO SCH (21:00)
[2023-04-15] MEDS ORDERED: Doxepin HCl 25 MG CAP PO SCH (21:00)
[2023-04-15] MEDS ORDERED: Gabapentin 300 MG CAP PO SCH (21:00)
[2023-04-15] MEDS ORDERED: Carbidopa/Levodopa 25-250 mg Tablet PO SCH (21:00)
[2023-04-16] MEDS ORDERED: Benzonatate 100 MG CAP PO PRN (03:25)
[2023-04-16 04:08] VITALS: BP 119/80; TEMP 98.7
[2023-04-16 06:08] LABS: #Eosinphils 0.4 thou/uL (0.0-0.7); #Monocytes 0.7 thou/uL (0.11-0.59); #Neutrophils 4.2 thou/uL (1.40-6.50); %Basophils 0.5 % (0.0-1.0); %Eosinophils 5.4 % (0.0-10.0); %Lymphocytes 34.8 % (21.0-51.0); %Monocytes 8.1 % (0.0-10.0); %Neutrophils 50.8 % (42.0-75.0); Hematocrit 32.6 % (36.0-47.0); Hemoglobin 9.3 g/dL (12.0-16.0); Mean Corpuscular HGB CONC 28.5 g/dL (32.0-36.0); Mean Corpuscular Hemoglobin 19.7 pg (27.0-31.0); Mean Corpuscular Volume 68.9 fl (78.0-98.0); Mean Platelet Volume 10.6 fL (7.4-10.4); Platelet Count 456 10x3/uL (130-400); RBC Distribution Width 18.8 % (11.5-14.5); Red Blood Cell (RBC) Count 4.73 mill/uL (4.20-5.40); White Blood Cell (WBC) Count 8.2 10x3/uL (4.8-10.8)
[2023-04-16 06:37] LABS: Cardiac Risk 3.7 (Less than 4.5)
[2023-04-16 06:47] LABS: Anion Gap 12 mmol/L (10-20); BUN (Urea Nitrogen) 11 mg/dL (9.8-20.1); Calc. Creatinine Clearance 134 mL/min (70-130); Calcium 8.8 mg/dL (7.8-10.44); Carbon Dioxide 25 mmol/L (22-29); Chloride 108 mmol/L (98-107); Estimated GFR 100; Glucose 104 mg/dL (70-105); Potassium 4.2 mmol/L (3.5-5.1); Sodium 141 mmol/L (136-145)
[2023-04-16] MEDS ORDERED: Lorazepam 0.5 MG TAB PO PRN ×2 (06:57→07:04)
[2023-04-16] MEDS ORDERED: Lorazepam 0.5 MG TAB PO SCH (07:00)
[2023-04-16] MEDS ORDERED: lamoTRIgine 100 MG TAB PO SCH (09:00)
[2023-04-16] MEDS ORDERED: Sertraline 100 MG TAB PO SCH (09:00)
[2023-04-16] MEDS ORDERED: Aripiprazole 10 MG TAB PO SCH (09:00)
[2023-04-16] MEDS ORDERED: Enoxaparin 40 MG (0.4 mL) SYRINGE SC SCH (09:00)
[2023-04-16] MEDS ORDERED: lamoTRIgine 25 MG TAB PO SCH (09:00)
[2023-04-16] MEDS ORDERED: clonazePAM 1 MG TAB PO SCH (12:00)
== END 2023-04-16 07:58 | disposition left against medical advice (07) | DRG 69 ==
LOC: ERS 08:29 → ERHOLD 09:46 → 2SE 14:01
PROVIDERS: ADMIT Family Medicine; ATTEND Family Medicine
DX: G45.9 Transient cerebral ischemic attack, unspecified (principal); F33.2 Major depressive disorder, recurrent severe without psychotic features; G81.91 Hemiplegia, unspecified affecting right dominant side; G20.A1 Parkinson's disease without dyskinesia, without mention of fluctuations; F02.80 Dementia in other diseases classified elsewhere, unspecified severity, without behavioral disturbance, psychotic disturbance, mood disturbance, and anxiety; K21.9 Gastro-esophageal reflux disease without esophagitis; G43.909 Migraine, unspecified, not intractable, without status migrainosus; E78.5 Hyperlipidemia, unspecified; R29.810 Facial weakness; D50.9 Iron deficiency anemia, unspecified; Z83.3 Family history of diabetes mellitus; F41.9 Anxiety disorder, unspecified; Z90.49 Acquired absence of other specified parts of digestive tract; Z90.710 Acquired absence of both cervix and uterus; Z98.890 Other specified postprocedural states; Z79.899 Other long term (current) drug therapy; Z86.73 Personal history of transient ischemic attack (TIA), and cerebral infarction without residual deficits; Z79.82 Long term (current) use of aspirin; Z79.84 Long term (current) use of oral hypoglycemic drugs
CPT/HCPCS: 0042T; 36415; 36416; 70450; 70496; 70498; 71045; 80048; 80053; 80061; 82550; 83036; 84443; 84484; 85025; 85610; 85730; 93005; 93010; 94760; C9113; J7050; Q9967

== ENCOUNTER 2023-08-25 13:35 | Inpatient (IN) | payer MEDICARE ==
[2023-08-25 14:42] VITALS: BMI 30.5
[2023-08-25] MEDS ORDERED: Acetaminophen 650 MG Suppository PR PRN (16:44)
[2023-08-25] MEDS ORDERED: Bisacodyl 5 MG TAB PO PRN (16:44)
[2023-08-25] MEDS ORDERED: Senokot S 8.6-50 MG TAB PO PRN (16:44)
[2023-08-25] MEDS ORDERED: Acetaminophen 325 MG TAB PO PRN (16:44)
[2023-08-25] MEDS ORDERED: Insulin Regular 300 UNITS/3 ML VIAL SC PRN ×2 (16:52)
[2023-08-25] MEDS ORDERED: Glucagon 1 MG/ML KIT IM PRN (16:52)
[2023-08-25] MEDS ORDERED: Dextrose 5% in Water 1,000 ML IV PRN (16:52)
[2023-08-25] MEDS ORDERED: Dextrose 50% Abboject 50 ML SYRINGE SLOW IVP PRN (16:52)
[2023-08-25] MEDS: metFORMIN 500 MG TAB PO SCH (17:29)
[2023-08-25] MEDS: clonazePAM 0.5 MG TAB PO SCH (17:29)
[2023-08-25] MEDS ORDERED: Ipratropium/Albuterol 3 ML NEB NEB SCH (18:30)
[2023-08-25] MEDS: Ipratropium/Albuterol 3 ML NEB NEB SCH (19:19)
[2023-08-25] MEDS: HYDROcodone/Acetaminophen 5/325 mg Tablet PO PRN (19:46)
[2023-08-25] MEDS ORDERED: CARBIDOPA PO SCH (21:00)
[2023-08-25] MEDS ORDERED: LEVODOPA PO SCH (21:00)
[2023-08-25] MEDS: clonazePAM 1 MG TAB PO SCH (21:59)
[2023-08-25] MEDS: Gabapentin 300 MG CAP PO SCH (22:00)
[2023-08-25] MEDS: Donepezil HCl 10 MG TAB PO SCH (22:00)
[2023-08-25] MEDS: Doxycycline 100 MG in Sodium Chloride 0.9% 100 ML IVPB SCH (22:02)
[2023-08-25] MEDS: Doxepin HCl 25 MG CAP PO SCH (22:49)
[2023-08-26 06:08] LABS: #Basophils Less than 0.03 10x3/uL (0.0-0.2); %Basophils 0.2 % (0.0-1.0); %Eosinophils 1.8 % (0.0-10.0); %Lymphocytes 26.7 % (21.0-51.0); %Monocytes 6.5 % (0.0-10.0); Hematocrit 27.9 % (36.0-47.0); Hemoglobin 7.8 g/dL (12.0-16.0); Mean Corpuscular Hemoglobin 19.6 pg (27.0-31.0); Mean Corpuscular Volume 70.3 fL (78.0-98.0); Mean Platelet Volume 10.1 fL (7.4-10.4); Platelet Count 373 10x3/uL (130-400); RBC Distribution Width 22.4 % (11.5-14.5); Red Blood Cell (RBC) Count 3.97 mill/uL (4.20-5.40)
[2023-08-26 06:27] LABS: Anion Gap 13 mmol/L (10-20); BUN (Urea Nitrogen) 8 mg/dL (9.8-20.1); Calc. Creatinine Clearance 142 mL/min (70-130); Calcium 9.1 mg/dL (7.8-10.44); Carbon Dioxide 24 mmol/L (23-31); Chloride 111 mmol/L (98-107); Estimated GFR 103; Glucose 107 mg/dL (80-115); Potassium 3.5 mmol/L (3.5-5.1); Sodium 144 mmol/L (136-145)
[2023-08-26] MEDS: Guaifenesin DM 100-10/5 ML UDCUP PO PRN (06:43)
[2023-08-26 07:28] VITALS: TEMP 98.2
[2023-08-26] MEDS: predniSONE 20 MG TAB PO SCH (08:47)
[2023-08-26] MEDS: Pantoprazole DR 40 MG TAB PO SCH (08:47)
[2023-08-26] MEDS: lamoTRIgine 100 MG TAB PO SCH (08:48)
[2023-08-26] MEDS: Aripiprazole 10 MG TAB PO SCH (08:48)
[2023-08-26] MEDS: clonazePAM 1 MG TAB PO SCH (08:48)
[2023-08-26] MEDS: Enoxaparin 40 MG (0.4 mL) SYRINGE SC SCH (08:48)
[2023-08-26] MEDS: Benzonatate 100 MG CAP PO SCH (08:48)
[2023-08-26 10:05] LABS: Hematocrit 28.4 % (36.0-47.0); Hemoglobin 7.9 g/dL (12.0-16.0)
[2023-08-26] MEDS: guaiFENesin ER 600 MG TAB PO SCH (11:04)
[2023-08-26 12:15] VITALS: BP 106/71
[2023-08-26] MEDS: Polyethylene Glycol 3350 17 GM Packet PO SCH (12:49)
[2023-08-26] MEDS: Ipratropium/Albuterol 3 ML NEB NEB SCH (13:23)
[2023-08-27] MEDS ORDERED: Polyethylene Glycol 3350 17 GM Packet PO SCH (09:00)
[2028-08-24] MEDS ORDERED: Sertraline 100 MG TAB PO SCH (21:00)
[2028-08-25] MEDS ORDERED: cefTRIAXone\\ROCEPHIN 1 GM in Sodium Chloride 0.9% 100 ML IVPB SCH (09:00)
== END 2023-08-26 16:36 | disposition home or self-care (01) | DRG 193 ==
LOC: T4-B 13:58
PROVIDERS: ADMIT Student in an Organized Health Care Education/Training Program; ATTEND Family Medicine
DX: J15.9 Unspecified bacterial pneumonia (principal); J96.01 Acute respiratory failure with hypoxia; F02.84 Dementia in other diseases classified elsewhere, unspecified severity, with anxiety; N39.0 Urinary tract infection, site not specified; F39 Unspecified mood [affective] disorder; B96.20 Unspecified Escherichia coli [E. coli] as the cause of diseases classified elsewhere; E11.9 Type 2 diabetes mellitus without complications; I10 Essential (primary) hypertension; D50.9 Iron deficiency anemia, unspecified; G30.0 Alzheimer's disease with early onset; Z79.899 Other long term (current) drug therapy; Z98.890 Other specified postprocedural states; Z90.49 Acquired absence of other specified parts of digestive tract; Z98.891 History of uterine scar from previous surgery; Z90.710 Acquired absence of both cervix and uterus
CPT/HCPCS: 36415; 36416; 80048; 82274; 85025; 87040; 87086; J1650; J3490; J7512; J7620

== ENCOUNTER 2023-10-09 07:42 | Day surgery (SDC) | payer MEDICARE ==
[2023-10-09] MEDS ORDERED: diphenhydrAMINE 50 MG/ML VIAL ONE (08:20)
[2023-10-09] MEDS: diphenhydrAMINE 50 MG/ML VIAL IVP SCH (08:22)
[2023-10-09] MEDS: Sodium Ferric Gluconate 125 MG in Sodium Chloride 0.9% 100 ML IVPB SCH (08:53)
[2023-10-09 11:00] VITALS: BP 101/55; TEMP 98.2
== END 2023-10-09 11:01 | disposition home or self-care (01) ==
LOC: ONC/OP 07:42
PROVIDERS: ATTEND Student in an Organized Health Care Education/Training Program
DX: D50.9 Iron deficiency anemia, unspecified (principal)
CPT/HCPCS: 96365; 96375; J1200; J2916; J3490